=== PATIENT | female | born 1975 | race Caucasian/White ===

== ENCOUNTER 2024-02-01 17:03 | Inpatient (IN) | payer OTHER, SELFPAY ==
--- NOTE | ~2024-02-01 | XR_ITS ---
EXAMINATION: XR chest 2V CLINICAL INFORMATION: cough, SOB COMPARISON: None TECHNIQUE: 2 views of the chest FINDINGS: Clear lungs. No pneumothorax. No pleural effusion. Normal cardiomediastinal silhouette. XR/XR chest 2V IMPRESSION: Clear lungs. Electronically signed by: Shana Paul MD 02/01/2024 07:02 PM [facility]
[2024-02-01 17:33] VITALS: BP 111/78; PULSE 95; RESP 22; TEMP 37.2; O2SAT 87; BMI 24.1
--- NOTE | 2024-02-01 17:35 | ED.GENADULT ---
HPI - General Adult General Chief complaint: Upper Respiratory Symptoms Stated complaint: sob, cough Time Seen by Provider: 02/01/24 18:28 History of Present Illness ED Provider: Dez HERNDON narrative: The patient is a 48-year-old woman with a history of asthma. She is also a smoker. She is homeless. The patient says that she has been coughing for the last 4 days. She says that she thinks she has had fevers. She says that she is coughing up yellow sputum. She has been using her inhalers without relief. She says that last night she had to sleep outside in the rain and she got no sleep and became very chilled. Related Data Home Medications ?Medication ?Instructions ?Recorded ?Confirmed methadone 10 mg/5 mL oral solution 115 mg PO DAILY 02/01/24 02/01/24 Allergies Allergy/AdvReac Type Severity Reaction Status Date / Time No Known Allergies Allergy Unverified 02/01/24 17:35 Review of Systems Review of Systems: Yes all other systems are reviewed and are negative [facility] Past Medical History Medical History Opioid use disorder Tobacco use disorder COPD (chronic obstructive pulmonary disease) Asthma Social History Social History Advance Directives: No Advance Directives Information Provided: Yes Do you have a plan to hurt others: No Plan Patient : No Physical Exam ED Vital Signs: Vital Signs - 24 hr 02/01/24 17:33 02/01/24 17:58 02/01/24 19:09 Temperature 98.9 F Pulse Rate 95 119 H 119 H Respiratory Rate 22 H 24 H 18 Blood Pressure 111/78 Pulse Oximetry 87 L Oxygen Delivery Method Room Air Oxygen Flow Rate 02/01/24 19:30 Temperature 97.6 F Pulse Rate 113 H Respiratory Rate 18 Blood Pressure 136/79 Pulse Oximetry 93 Oxygen Delivery Method Nasal Cannula Oxygen Flow Rate 1 BMI result Body Mass Index 24.1 Const Other: The patient is a thin, somewhat chronically ill and disheveled looking 48-year-old. She is awake and alert and looks somewhat unwell. HENMT Other: Face is symmetrical. Mucous membranes moist. Poor dentition. Eyes General: appearance normal, both eyes and all related structures Neck Neck: Yes full ROM and Yes supple Resp Other: No obvious increased work of breathing. There are inspiratory and expiratory wheezes bilaterally. No roscoe crackles. Cardio Rate: tachycardic Rhythm: regular rhythm Heart sounds: S1 normal heart sound present and S2 normal heart sound present GI Other: Abdomen is soft and nontender Skin Other: Skin is pale and dry Neuro Other: The patient is awake and alert. Cranial nerves are grossly intact. She moves her extremities normally and seems grossly neurologically intact. Extrem Other: No peripheral edema. No calf swelling or tenderness. Course Course Course Narrative: RME performed by Verito Goss PA-C. Patient is a 48 year old assigned female at presenting to the emergency department with a cough, shortness of breath, and chest pain. Patient states she has been having shortness of breath and a cough. Detailed physical exam and review of systems are deferred to the primary education professor. EKG, labs, imaging, and swabs ordered. Patient placed back in the waiting room pending room availability and results. Medications Administered Generic Name Dose Route Start Last Admin Trade Name Freq PRN Reason Stop Dose Admin Albuterol/Ipratropium 3 ml 02/01/24 20:00 02/01/24 21:18 Albuterol/Iprat 2.5/0.5mg 3 Ml Ampul.Neb INHALE Not Given RQ4H WHILE AWAKE COURT Enoxaparin Sodium 40 mg 02/01/24 20:00 02/01/24 21:10 Enoxaparin Sodium 40 Mg/0.4 Ml Syringe SUBCUT [address] Administration Nicotine 14 mg 02/01/24 20:20 02/01/24 21:09 Nicotine 14 Mg Patch.Td24 TRANSDERMA [address] Administration Discontinued Medications Generic Name Dose Route Start Last Admin Trade Name Freq PRN Reason Stop Dose Admin Albuterol/Ipratropium 3 ml 02/01/24 18:57 02/01/24 19:09 Albuterol/Iprat 2.5/0.5mg 3 Ml Ampul.Neb INHALE 02/01/24 18:58 3 ml ONCE ONE Administration Ceftriaxone Sodium 1 gm 02/01/24 19:37 02/01/24 20:14 Ceftriaxone Sodium 1 Gm Vial IVPUSH 02/01/24 19:38 1 gm ONCE ONE Administration Albuterol Sulfate 5 mg/ 0 mg 02/01/24 17:50 02/01/24 17:56 Albuterol/Ipratropium 3 ml INHALE 02/01/24 17:51 1 each ONCE ONE Administration Magnesium Sulfate 2 gm in 50 mls @ 150 mls/hr 02/01/24 18:55 02/01/24 19:37 Magnesium Sulfate/H2o IV 02/01/24 19:14 Infused ONCE ONE Infusion Azithromycin 500 mg/ Sodium 250 mls @ 125 mls/hr 02/01/24 19:39 02/01/24 20:26 Chloride IV 02/01/24 21:38 125 mls/hr ONCE ONE Administration Methadone HCl 115 mg 02/01/24 19:46 02/01/24 20:14 Methadone Hcl 20 Mg/2 Ml Oral.Conc PO 02/01/24 19:47 115 mg ONCE ONE Administration Methylprednisolone Sodium Succinate 80 mg 02/01/24 18:52 02/01/24 19:18 Methylprednisolone Sod Succ 125 Mg/2 Ml Vial IVPUSH 02/01/24 18:53 80 mg ONCE ONE Administration Medical Decision Making Medical Decision Making [facility] Narrative: The patient woman with a also a smoker. She is also homeless and she has a history of substance use disorder on methadone. She says that she normally lives on the streets in the [facility]. She does not have a primary care doctor. She says she has been sick with respiratory symptoms primarily a cough and shortness of breath for the last 4 days. On exam she has significant bilateral wheezing. She has a clear chest x-ray. She has an elevated white count. Her oxygen saturation on room air on arrival was 87% and she was given supplemental oxygen. Her magnesium was mildly low. She will be treated with bronchodilator treatments, IV magnesium, IV steroids, and IV antibiotics. She did not improved significantly after updrafts and will be admitted for further care. Lab Data 02/01/24 17:46 02/01/24 17:46 Labs: Lab Results 02/01/24 Range/Units 17:46 WBC 15.1 H (4.8-10.8) X10*3/uL RBC 4.21 (4.20-5.50) X10*6/uL Hgb 12.7 (12.0-16.0) g/dl Hct 36.6 L (37.0-47.0) % MCV 86.9 (80.0-98.0) fL MCH 30.2 (27.0-33.0) pg MCHC 34.7 (31.0-35.0) g/dl RDW 13.7 (11.0-16.0) % Plt Count 239 (160-400) X10*3/uL MPV 9.2 L (9.4-12.3) fL Immature Gran % (Auto) 0.5 H (0.0-0.4) % Neut % (Auto) 83.1 H (45-73) % Lymph % (Auto) 10.8 L (20-40) % Archer % (Auto) 4.8 (2-11) % Eos % (Auto) 0.5 (0-4) % Baso % (Auto) 0.3 (0-2) % Lymph # (Auto) 1.6 (1.2-4.9) X10*3/uL Archer # (Auto) 0.7 (0.1-1.2) X10*3/uL Eos # (Auto) 0.1 (0.0-0.4) X10*3/uL Baso # (Auto) 0.1 (0.0-0.2) X10*3/uL Abs Immat Gran (auto) 0.07 H (0.00-0.03) X10*3/uL Absolute Neuts (auto) 12.6 H (2.0-8.3) x10*3/uL Absolute Nucleated RBC 0.000 (0.0-0.012) X10*3/uL Nucleated RBC % (auto) 0.0 (0.0-0.2) /100WBC Sodium 136 (135-145) mmol/L Potassium 3.5 (3.3-5.1) mmol/L Chloride 103 (96-108) mmol/L Carbon Dioxide 23 (22-29) mmol/L Anion Gap 14 (12-20) BUN 13 (9-16) mg/dL Creatinine 0.90 (0.5-1.4) mg/dL Estim Creat Clear Calc 70.2 Estimated GFR > 60 Random Glucose 142 H (60-115) mg/dL Calcium 9.3 (8.4-10.2) mg/dL Magnesium 1.4 L* (1.6-2.6) mg/dL Total Bilirubin 0.4 (0.0-1.0) mg/dL AST 30 (5-31) U/L ALT 26 (0-31) U/L Alkaline Phosphatase 66 (39-117) U/L Troponin I High Sens < 2.7 (<3.5-17.0) ng/L C-Reactive Protein 4.87 H (< or = 0.50) mg/dL Total Protein 6.6 (6.5-8.0) g/dL Albumin 3.9 (3.5-5.0) g/dL Beta HCG, Quant < 2 mIU/mL Influenza Type A (PCR) NEGATIVE (Negative) Influenza Type B (PCR) NEGATIVE (Negative) RSV RNA Qual (PCR) NEGATIVE (Negative) SARS-CoV-2 RNA (RT-PCR) NEGATIVE (Negative) Independent Interpretation I performed an independent interpretation of an: EKG Interpretation: EKG at 17:34 shows sinus tachycardia at 121 beats per minute. No definite acute ischemic changes. QTC is 434. Critical Care Time Critical Care Time Critical Care Time: Yes Total Critical Care Time: 35 Attestation: The patient was critically ill with a high probability of imminent or life-threatening deterioration. ?I spent greater than 30 minutes of discontinuous time evaluating the patient, delivering critical care at the bedside, discussing evaluating data with consultants. ?Critical care time does not include time spent performing separately billable procedures or teaching. ?Time spent performing critical care with 35 minutes. Discharge Plan Discharge Clinical Impression: Acute bronchitis with asthma with acute exacerbation Patient Disposition: Admitted As Inpatient
--- NOTE | 2024-02-01 17:36 | ECG_ITS ---
Test Reason : cough Blood Pressure : / mmHG Vent. Rate : 121 BPM Atrial Rate : 121 BPM P-R Int : 134 ms QRS Dur : 076 ms QT Int : 306 ms P-R-T Axes : 064 039 046 degrees QTc Int : 434 ms Sinus tachycardia Possible Left atrial enlargement Borderline ECG No previous ECGs available Referred By: Verito Goss Electronically Signed By:Conor Rocha
--- NOTE | 2024-02-01 17:39 | PC.NURSE ---
PLaced on 2L NC in triage
[2024-02-01] MEDS: Albuterol Sulfate 5 MG, Albuterol/Iprat 2.5/0.5MG 3 ML 3 ML INHALE (17:56)
[2024-02-01 17:58] VITALS: PULSE 119; RESP 24; O2SAT 100
[2024-02-01 17:58] LABS: MANUAL DIFF FLAG NO
[2024-02-01 18:02] LABS: Basophils Absolute Auto 0.1 X10*3/uL (0.0-0.2); Basophils Percent Auto 0.3 % (0-2); Eosinophils Absolute Auto 0.1 X10*3/uL (0.0-0.4); Eosinophils Percent Auto 0.5 % (0-4); Hematocrit 36.6 % (37.0-47.0); Hemoglobin 12.7 g/dl (12.0-16.0); Imm Gran Abs Auto 0.07 X10*3/uL (0.00-0.03); Imm Gran Pct Auto 0.5 % (0.0-0.4); Lymphocytes Absolute Auto 1.6 X10*3/uL (1.2-4.9); Lymphocytes Percent Auto 10.8 % (20-40); Mean Corpuscular HGB Conc 34.7 g/dl (31.0-35.0); Mean Corpuscular Hemoglobin 30.2 pg (27.0-33.0); Mean Corpuscular Volume 86.9 fL (80.0-98.0); Mean Platelet Volume 9.2 fL (9.4-12.3); Monocytes Absolute Auto 0.7 X10*3/uL (0.1-1.2); Monocytes Percent Auto 4.8 % (2-11); Neutrophils Absolute Auto 12.6 x10*3/uL (2.0-8.3); Neutrophils Percent Auto 83.1 % (45-73); Platelet Count 239 X10*3/uL (160-400); Red Blood Count 4.21 X10*6/uL (4.20-5.50); Red Cell Distribution Width 13.7 % (11.0-16.0); White Blood Count 15.1 X10*3/uL (4.8-10.8)
[2024-02-01 18:32] LABS: Alanine Aminotransferase 26 U/L (0-31); Albumin Level 3.9 g/dL (3.5-5.0); Alkaline Phosphatase 66 U/L (39-117); Anion Gap 14 (12-20); Aspartate Amino Transferase 30 U/L (5-31); Bilirubin Total 0.4 mg/dL (0.0-1.0); Blood Urea Nitrogen 13 mg/dL (9-16); Calcium 9.3 mg/dL (8.4-10.2); Carbon Dioxide 23 mmol/L (22-29); Chloride 103 mmol/L (96-108); Creatinine Clr Calc Pharmacy 70.2; Estimated Glomerular Filt Rate > 60; Glucose Random 142 mg/dL (60-115); Potassium 3.5 mmol/L (3.3-5.1); Sodium 136 mmol/L (135-145); Total Protein 6.6 g/dL (6.5-8.0); Troponin-I High Sensitivity < 2.7 ng/L (<3.5-17.0)
[2024-02-01 18:43] LABS: Influenza A PCR NEGATIVE (Negative); Influenza B PCR NEGATIVE (Negative); Resp Syncy Virus RNA Qual PCR NEGATIVE (Negative); SARS COV2 PCR INHOUSE NEGATIVE (Negative)
[2024-02-01 19:09] VITALS: PULSE 119; RESP 18; O2SAT 96
[2024-02-01] MEDS: Albuterol/Iprat 2.5/0.5MG 3 ML AMPUL.NEB INHALE (19:09)
[2024-02-01 19:12] LABS: Magnesium 1.4 mg/dL (1.6-2.6)
[2024-02-01 19:14] LABS: C Reactive Protein 4.87 mg/dL (< or = 0.50)
[2024-02-01] MEDS: Magnesium Sulfate/H2O 2 GM/50 ML PIGGYBACK IV (19:17)
[2024-02-01] MEDS: methylPREDNISolone Sod Succ 125 MG/2 ML VIAL 80 MG IVPUSH (19:18)
[2024-02-01 19:22] LABS: HCG Quantitative < 2 mIU/mL
[2024-02-01 19:30] VITALS: BP 136/79; PULSE 113; RESP 18; TEMP 36.4; O2SAT 93
--- NOTE | 2024-02-01 19:45 | PC.NURSE ---
methadone dose verified with [facility],. last dose 115mg 01/31/24
--- NOTE | 2024-02-01 19:47 | P.HPHOSP_ITS ---
History of Present Illness Date of Service: 02/01/24 Chief Complaint: Dyspnea This is a 48-year-old female with pertinent history of asthma/COPD overlap syndrome, tobacco use disorder, opioid use disorder on methadone who presents to the emergency department for evaluation of dyspnea. Patient states her symptoms started 4 days prior to presentation. She has been having dyspnea which is worse with exertion. Also has been having productive cough with yellowish sputum production. Admits associated wheezing which is limiting her ambulation. Admits feeling feverish but no documented temperature. No chills, nausea, vomiting, chest pain, palpitations, abdominal pain, changes in urinary or bowel habits. In the emergency department, patient was found to be hypoxic and placed on supplemental oxygen. Given DuoNebs, IV azithromycin and steroids Review of Systems 2 Constitutional: Constitutional: Reports fatigue and Reports malaise Cardiovascular: Cardiovascular: Reports dyspnea on exertion Respiratory: Respiratory: Reports cough, Reports dyspnea on exertion and Reports wheezing Gastrointestinal: Gastrointestinal: Reports no additional gastrointestinal complaints Genitourinary: Genitourinary: Reports no additional female genitourinary complaints Endocrine: Endocrine: Reports fatigue Allergic/Immunologic: Allergic/Immunologic: Reports wheezing [facility] Medical History Opioid use disorder Tobacco use disorder COPD (chronic obstructive pulmonary disease) Asthma Pertinent family history: No family history of early CAD Meds Allergies Allergy/AdvReac Type Severity Reaction Status Date / Time No Known Allergies Allergy Unverified 02/01/24 17:35 Active Medications: Current Medications Azithromycin 500 mg/ Sodium (Chloride) 250 mls @ 125 mls/hr IV ONCE ONE Stop: 02/01/24 21:38 Physical Exam 2 Vital Signs and Narrative: Vital Signs: Last Vital Signs Temp 97.6 F 02/01/24 19:30 Pulse 113 H 02/01/24 19:30 Resp 18 02/01/24 19:30 BP 136/79 02/01/24 19:30 Pulse Ox 93 02/01/24 19:30 O2 Del Method Nasal Cannula 02/01/24 19:30 O2 Flow Rate 1 02/01/24 19:30 BMI result Body Mass Index 24.1 Middle-aged female lying in bed in mild distress on supplemental oxygen Neck supple, no JVD Regular rate and rhythm, S1-S2 heard Bilateral wheezing present Abdomen soft nontender, no guarding, no rigidity Patient is awake, alert and oriented to self, place, time and person ; no focal motor deficit Psych: Normal mood No pedal edema Results Labs 02/01/24 17:46 02/01/24 17:46 Labs: Laboratory Results - last 24 hr 02/01/24 17:46 MCV 86.9 MCH 30.2 MCHC 34.7 RDW 13.7 Plt Count 239 MPV 9.2 L Immature Gran % (Auto) 0.5 H Neut % (Auto) 83.1 H Lymph % (Auto) 10.8 L Nelson % (Auto) 4.8 Eos % (Auto) 0.5 Baso % (Auto) 0.3 Lymph # (Auto) 1.6 Nelson # (Auto) 0.7 Eos # (Auto) 0.1 Baso # (Auto) 0.1 Abs Immat Gran (auto) 0.07 H Absolute Neuts (auto) 12.6 H Absolute Nucleated RBC 0.000 Nucleated RBC % (auto) 0.0 Anion Gap 14 Estim Creat Clear Calc 70.2 Estimated GFR > 60 Random Glucose 142 H Calcium 9.3 Magnesium 1.4 L* Total Bilirubin 0.4 AST 30 ALT 26 Alkaline Phosphatase 66 Troponin I High Sens < 2.7 C-Reactive Protein 4.87 H Total Protein 6.6 Albumin 3.9 Beta HCG, Quant < 2 Influenza Type A (PCR) NEGATIVE Influenza Type B (PCR) NEGATIVE RSV RNA Qual (PCR) NEGATIVE SARS-CoV-2 RNA (RT-PCR) NEGATIVE Imaging Radiologist's Impressions: Impressions Chest X-Ray 02/01/24 17:37 IMPRESSION: Clear lungs. Electronically signed by: Shana Paul MD 02/01/2024 07:02 PM [facility] Assessment and Plan (1) Acute bronchitis with asthma with acute exacerbation: Status: Acute (2) COPD (chronic obstructive pulmonary disease): Status: Acute Plan This is a 48-year-old female with pertinent history of asthma/COPD overlap syndrome, tobacco use disorder, opioid use disorder on methadone who presents to the emergency department for evaluation of dyspnea. #. Acute hypoxemic respiratory failure due to acute exacerbation of asthma/COPD overlap syndrome: Will admit patient with supplemental oxygen. Initiating she due and p.r.nWoody Terrell. Not on home inhaler. Continue supplemental oxygen and wean as tolerated, maintain oxygen saturation greater than 88%. Initiating azithromycin for pleiotropic effect. Also initiating systemic steroids #. Reactive leukocytosis, tachycardia and tachypnea in the setting of above. No sepsis #. Hypomagnesemia: Repleted #. Tobacco use disorder: Counseled regarding cessation. Nicotine patch while in the hospital #. Homelessness: Consulted case management #. Opioid use disorder: On methadone Med rec pending DVT prophylaxis: Lovenox Full code Admit as inpatient and will require two night minimum hospital stay for supplemental oxygen, monitoring of respiratory status, systemic steroids (as above), which is not possible in a lesser acute setting. Quality Stroke Does the patient have a stroke diagnosis?: No VTE Prior VTE?: No VTE Risk Level:: Medical - moderate - high VTE Device Contraindication: Treatment Not Indicated VTE Drug Contraindication: N/A - Med Ordered
[2024-02-01 19:52] VITALS: O2SAT 94
--- NOTE | 2024-02-01 20:06 | HE.PHANOTE ---
METHADONE CONFIRMATION FORM TOTAL DOSE 115MG GIVEN 01/30 BY Marleny [facility]AH[facility]
[2024-02-01] MEDS: cefTRIAXone sodium 1 GM VIAL IVPUSH (20:14)
[2024-02-01] MEDS: methADONE HCl 20 MG/2 ML ORAL.CONC 115 MG PO (20:14)
[2024-02-01] MEDS: Azithromycin 500 MG in 0.9 % Sodium Chloride 250 ML 125 MG IV (20:26)
--- NOTE | 2024-02-01 20:42 | PHA.MEDREC ---
Addendum entered by Anny Reynolds RPh 02/01/24 20:59: med rec reviewed by this [facility] Original Note: Pharmacy Consult ? Medication Reconciliation Pharmacy has completed the medication reconciliation. Patient confirmed she is only taking Methadone 115mg daily and nothing else and states she doesn't remember the last time she took it [facility] Pharmacy confirmed METHADONE CONFIRMATION FORM TOTAL DOSE 115MG GIVEN 01/30 BY Marleny [facility] . Added to med rec and confirmed based on patient and pharmacy information.
[2024-02-01] MEDS: Nicotine 14 MG PATCH.TD24 TRANSDERMA (21:09)
[2024-02-01] MEDS: Enoxaparin Sodium 40 MG/0.4 ML SYRINGE SUBCUT (21:10)
[2024-02-01 22:02] VITALS: BP 112/61; PULSE 84; RESP 16; TEMP 36.8; O2SAT 93
--- NOTE | 2024-02-01 22:32 | PC.NURSE ---
pt azithromycin still infusing pt reminded to keep arm straight
[2024-02-01] MEDS: 0.9 % Sodium Chloride Flush 3 ML SYRINGE IVFLUSH (23:36)
--- NOTE | 2024-02-02 00:09 | PC.NURSE ---
Azithromycin IV disconnected. Infusion completed. Pt was repeatedly bending her arm, causing downstream occlusion of the IV line. IV is patent/functional. Encouraged to keep arm straight, which delayed complete infusion within the ordered amount of time. Pt denies any other needs at this time. Pt intermittently resting/sleeping. Respirations even/unlabored. Care ongoing by this RN.
[2024-02-02 04:05] VITALS: BP 96/63; PULSE 78; RESP 24; TEMP 36.4; O2SAT 99
[2024-02-02 06:04] LABS: MANUAL DIFF FLAG NO
[2024-02-02 06:09] LABS: Basophils Percent Auto 0.1 % (0-2); Hemoglobin 11.2 g/dl (12.0-16.0); Imm Gran Abs Auto 0.05 X10*3/uL (0.00-0.03); Imm Gran Pct Auto 0.5 % (0.0-0.4); Lymphocytes Absolute Auto 0.8 X10*3/uL (1.2-4.9); Lymphocytes Percent Auto 7.8 % (20-40); Mean Corpuscular HGB Conc 32.9 g/dl (31.0-35.0); Mean Corpuscular Hemoglobin 29.6 pg (27.0-33.0); Mean Corpuscular Volume 89.9 fL (80.0-98.0); Mean Platelet Volume 9.9 fL (9.4-12.3); Monocytes Absolute Auto 0.3 X10*3/uL (0.1-1.2); Monocytes Percent Auto 3.2 % (2-11); Neutrophils Absolute Auto 8.5 x10*3/uL (2.0-8.3); Neutrophils Percent Auto 88.4 % (45-73); Platelet Count 231 X10*3/uL (160-400); Red Blood Count 3.78 X10*6/uL (4.20-5.50); Red Cell Distribution Width 13.9 % (11.0-16.0); White Blood Count 9.6 X10*3/uL (4.8-10.8)
[2024-02-02 06:27] LABS: Anion Gap 14 (12-20); Blood Urea Nitrogen 23 mg/dL (9-16); Carbon Dioxide 23 mmol/L (22-29); Chloride 105 mmol/L (96-108); Creatinine Clr Calc Pharmacy 79.1; Estimated Glomerular Filt Rate > 60; Glucose Random 160 mg/dL (60-115); Potassium 4.1 mmol/L (3.3-5.1); Sodium 138 mmol/L (135-145)
[2024-02-02] MEDS: Albuterol/Iprat 2.5/0.5MG 3 ML AMPUL.NEB INHALE ×4 (07:50→23:07)
[2024-02-02 07:52] VITALS: PULSE 62; RESP 22; O2SAT 97
[2024-02-02] MEDS: Nicotine 14 MG PATCH.TD24 TRANSDERMA (08:19)
[2024-02-02] MEDS: predniSONE 20 MG TABLET 40 MG PO (08:19)
[2024-02-02] MEDS: 0.9 % Sodium Chloride Flush 3 ML SYRINGE IVFLUSH ×3 (08:19→23:09)
[2024-02-02 11:36] VITALS: BP 128/90; PULSE 56; RESP 18; TEMP 36.3; O2SAT 97
[2024-02-02 11:43] VITALS: PULSE 82; RESP 18; O2SAT 98
[2024-02-02 12:04] LABS: Magnesium 2.2 mg/dL (1.6-2.6)
[2024-02-02] MEDS: methADONE HCl 20 MG/2 ML ORAL.CONC 115 MG PO (13:27)
[2024-02-02] MEDS: Acetaminophen 325 MG TABLET 650 MG PO (13:42)
[2024-02-02] MEDS: Loratadine 10 MG TABLET PO (14:49)
[2024-02-02 16:00] LABS: Adenovirus PCR Not Detected (Not Detect.); Bordetella parapertussis PCR Not Detected (Not Detect.); Bordetella pertussis PCR Not Detected (Not Detect.); Chlamydia pneumoniae PCR Not Detected (Not Detect.); Coronavirus 229E PCR Not Detected (Not Detect.); Coronavirus HKU1 PCR Not Detected (Not Detect.); Coronavirus NL63 PCR Not Detected (Not Detect.); Coronavirus OC43 PCR Not Detected (Not Detect.); Human metapneumovirus PCR Not Detected (Not Detect.); Influenza A PCR Not Detected (Not Detect.); Influenza B PCR Not Detected (Not Detect.); Mycoplasma pneumoniae PCR Not Detected (Not Detect.); Parainfluenza 1 PCR Not Detected (Not Detect.); Parainfluenza 2 PCR Not Detected (Not Detect.); Parainfluenza 3 PCR Not Detected (Not Detect.); Parainfluenza 4 PCR Not Detected (Not Detect.); RSV PCR Not Detected (Not Detect.); Rhino/Enterovirus PCR Detected (Not Detect.)
[2024-02-02 16:06] VITALS: PULSE 87; RESP 18; O2SAT 96
[2024-02-02 16:32] LABS: SARS-CoV-2 PCR Not Detected (Not Detect.)
--- NOTE | 2024-02-02 17:56 | P.PNIM_ITS ---
Subjective Subjective Date of Service: 02/03/24 Interval History: Acute hypoxemic respiratory failure due to acute exacerbation of asthma(moderate persistent)/COPD overlap syndrome Review of Systems Shortness of breaths seems similar Aggressive cough Physical Exam 2 Vital Signs: Vital Signs: Last Vital Signs Temp 97.3 F 02/02/24 11:36 Pulse 87 02/02/24 16:06 Resp 18 02/02/24 16:06 BP 128/90 H 02/02/24 11:36 Pulse Ox 97 02/02/24 11:36 O2 Del Method Nasal Cannula 02/02/24 11:36 O2 Flow Rate 1 02/02/24 11:36 Oxygen Flow Rate 2 02/01/24 19:52 BMI result Body Mass Index 24.1 Appearance: Alert.? Oriented X3.? cvs: rrr, [id number]. res: air enrty diminshed , has b/l wheezing abd: no rebound or guarding ,nt, bs present. ext pulses present , no cyanosis . neuro: axo3 , nonfocal. Objective Data Active Medications Acetaminophen (Acetaminophen 325 Mg Tablet) 650 mg PO Q6H PRN PRN Reason: Pain, Mild (Pain Scale 1-3), fever or headache Last Admin: 02/02/24 13:42 Dose: 650 mg Documented By: JEN Albuterol/Ipratropium (Albuterol/Iprat 2.5/0.5mg 3 Ml Ampul.Neb) 3 ml INHALE RQ4H WHILE AWAKE [facility] Last Admin: 02/02/24 16:06 Dose: 3 ml Documented By: JUANCARLOS Albuterol/Ipratropium (Albuterol/Iprat 2.5/0.5mg 3 Ml Ampul.Neb) 3 ml INHALE Q4H PRN PRN Reason: Wheezing Calcium Carbonate (Calcium Carbonate 750 Mg Tab.Chew) 750 mg PO Q4H PRN PRN Reason: Heartburn Enoxaparin Sodium (Enoxaparin Sodium 40 Mg/0.4 Ml Syringe) [address] [facility] Last Admin: 02/01/24 21:10 Dose: 40 mg Documented By: ABELINO Guaifenesin/Codeine Phosphate (Guaifen/Codeine Sf 200/20/10ml 10 Ml Liquid) 10 ml PO Q4H PRN PRN Reason: Cough Azithromycin 500 mg/ Sodium (Chloride) 250 mls @ 125 mls/hr IV Q24H [facility] Loratadine (Loratadine 10 Mg Tablet) [address] [facility] Last Admin: 02/02/24 14:49 Dose: 10 mg Documented By: JEN Magnesium Hydroxide (Milk Of Magnesia 30 Ml Oral.Susp) 30 ml PO DAILY PRN PRN Reason: Constipation Melatonin (Melatonin 3 Mg Tablet) 6 mg PO BEDTIME PRN PRN Reason: Insomnia Methadone HCl (Methadone Hcl 20 Mg/2 Ml Oral.Conc) [address] [facility] Last Admin: 02/02/24 13:27 Dose: 115 mg Documented By: JEN Co-signed By: FAUSTINODENJulee Nicotine (Nicotine 14 Mg Patch.Td24) [address] [facility] Last Admin: 02/02/24 08:19 Dose: 14 mg Documented By: JEN Ondansetron HCl (Ondansetron Hcl 4 Mg/2 Ml Vial) 4 mg IVPUSH Q8H PRN PRN Reason: Nausea and Vomiting Prednisone (Prednisone 20 Mg Tablet) [address] [facility] Last Admin: 02/02/24 08:19 Dose: 40 mg Documented By: JEN Sodium Chloride (0.9 % Sodium Chloride Flush 3 Ml Syringe) [address] [facility] Last Admin: 02/02/24 17:14 Dose: 3 ml Documented By: JEN Labs 02/02/24 04:57 02/02/24 04:57 Labs: Laboratory Results - last 24 hr 02/01/24 02/01/24 02/02/24 17:46 20:30 04:57 MCV 86.9 89.9 MCH 30.2 29.6 MCHC 34.7 32.9 RDW 13.7 13.9 Plt Count 239 231 MPV 9.2 L 9.9 Immature Gran % (Auto) 0.5 H 0.5 H Neut % (Auto) 83.1 H 88.4 H Lymph % (Auto) 10.[address] % (Auto) 4.8 3.2 Eos % (Auto) 0.5 0.0 Baso % (Auto) 0.3 0.1 Lymph # (Auto) 1.[address] # (Auto) 0.7 0.3 Eos # (Auto) 0.1 0.0 Baso # (Auto) 0.1 0.0 Abs Immat Gran (auto) 0.07 H 0.05 H Absolute Neuts (auto) 12.6 H 8.5 H Absolute Nucleated RBC 0.000 0.000 Nucleated RBC % (auto) 0.0 0.0 Anion Gap 14 14 Estim Creat Clear Calc 70.2 79.1 Estimated GFR > 60 > 60 Random Glucose 142 H 160 H Lactic Acid 2.0 Calcium 9.3 9.0 Magnesium 1.4 L* 2.2 Total Bilirubin 0.4 AST 30 ALT 26 Alkaline Phosphatase 66 Troponin I High Sens < 2.7 C-Reactive Protein 4.87 H Total Protein 6.6 Albumin 3.9 Beta HCG, Quant < 2 Respiratory Panel Wall Adenovirus (Rapid PCR) B.pert (TEM-PCR) B.parapertussis DNA PCR C. pneumoniae DNA (PCR) Coronavirus OC43 (PCR) Coronavirus HKU1 (PCR) Coronavirus 229E (PCR) Coronavirus NL63 (PCR) Human Metapneumovir PCR Influenza A (RT-PCR) Influenza Type A (PCR) NEGATIVE Influenza B (RT-PCR) Influenza Type B (PCR) NEGATIVE M. pneumoniae (PCR) Parainfluenza 1 (PCR) Parainfluenza 2 (PCR) Parainfluenza 3 (PCR) Parainfluenza 4 (PCR) RSV (PCR) RSV RNA Qual (PCR) NEGATIVE Entero/Rhino (PCR) SARS-CoV-2 RNA (RT-PCR) NEGATIVE 02/02/24 14:32 MCV MCH MCHC RDW Plt Count MPV Immature Gran % (Auto) Neut % (Auto) Lymph % (Auto) Lane % (Auto) Eos % (Auto) Baso % (Auto) Lymph # (Auto) Lane # (Auto) Eos # (Auto) Baso # (Auto) Abs Immat Gran (auto) Absolute Neuts (auto) Absolute Nucleated RBC Nucleated RBC % (auto) Anion Gap Estim Creat Clear Calc Estimated GFR Random Glucose Lactic Acid Calcium Magnesium Total Bilirubin AST ALT Alkaline Phosphatase Troponin I High Sens C-Reactive Protein Total Protein Albumin Beta HCG, Quant Respiratory Panel Wall See Note Adenovirus (Rapid PCR) Not Detected B.pert (TEM-PCR) Not Detected B.parapertussis DNA PCR Not Detected C. pneumoniae DNA (PCR) Not Detected Coronavirus OC43 (PCR) Not Detected Coronavirus HKU1 (PCR) Not Detected Coronavirus 229E (PCR) Not Detected Coronavirus NL63 (PCR) Not Detected Human Metapneumovir PCR Not Detected Influenza A (RT-PCR) Not Detected Influenza Type A (PCR) Influenza B (RT-PCR) Not Detected Influenza Type B (PCR) M. pneumoniae (PCR) Not Detected Parainfluenza 1 (PCR) Not Detected Parainfluenza 2 (PCR) Not Detected Parainfluenza 3 (PCR) Not Detected Parainfluenza 4 (PCR) Not Detected RSV (PCR) Not Detected RSV RNA Qual (PCR) Entero/Rhino (PCR) Detected A SARS-CoV-2 RNA (RT-PCR) Not Detected Assessment and Plan (1) COPD (chronic obstructive pulmonary disease): Status: Acute (2) Asthma: Status: Acute Assessment and Plan: 48-year-old female with pertinent history of asthma/COPD overlap syndrome, tobacco use disorder, opioid use disorder on methadone who presents to the emergency department for evaluation of dyspnea. Acute hypoxemic respiratory failure due to acute exacerbation of asthma/COPD overlap syndrome: Will admit patient with supplemental oxygen. Initiating she due and p.r.n. DuoNebs. Not on home inhaler. Continue supplemental oxygen and wean as tolerated, maintain oxygen saturation greater than 88%. Initiating azithromycin for pleiotropic effect. Also initiating systemic steroids Reactive leukocytosis, tachycardia and tachypnea in the setting of above. No sepsis Hypomagnesemia: Repleted Tobacco use disorder: Counseled regarding cessation. Nicotine patch while in the hospital Homelessness: Consulted case management Opioid use disorder: On methadone Med rec pending DVT prophylaxis: Lovenox Full code ongoing need for stay-hospital stay for supplemental oxygen, monitoring of respiratory status, systemic steroids (as above), which is not possible in a lesser acute setting. Quality Stroke Does the patient have a stroke diagnosis?: No VTE Prior VTE?: No VTE Risk Level:: Medical - moderate - high VTE Device Contraindication: Treatment Not Indicated VTE Drug Contraindication: N/A - Med Ordered
--- NOTE | 2024-02-02 19:14 | PC.NURSE ---
received report from previous nurse, assume care of pt at this time
[2024-02-02 20:00] VITALS: BP 131/76; PULSE 65; RESP 14; TEMP 36.2; O2SAT 92
[2024-02-02] MEDS: guaiFEN/Codeine SF 200/20/10ML 10 ML LIQUID PO (20:36)
[2024-02-02] MEDS: Enoxaparin Sodium 40 MG/0.4 ML SYRINGE SUBCUT (20:36)
[2024-02-02] MEDS: Azithromycin 500 MG in 0.9 % Sodium Chloride 250 ML 125 MG IV (20:41)
[2024-02-03] VITALS (7 sets, daily range): BP systolic 107–126; BP diastolic 64–84; PULSE 81–106; RESP 12–20; TEMP 36.1–36.7; O2SAT 95–98
[2024-02-03] MEDS: Albuterol/Iprat 2.5/0.5MG 3 ML AMPUL.NEB INHALE ×5 (03:27→20:10)
--- NOTE | 2024-02-03 03:28 | PC.NURSE ---
pt awake and sitting up in the bed, states she feels like she can't breath, pt request breathing treatment. treatment given,
[2024-02-03] MEDS: guaiFEN/Codeine SF 200/20/10ML 10 ML LIQUID PO ×3 (03:59→17:43)
--- NOTE | 2024-02-03 04:01 | PC.NURSE ---
pt coughing, requests cough medicine, medicine given as requested
--- NOTE | 2024-02-03 07:09 | PC.NURSE ---
report given to Robert ARRIAGA
[2024-02-03] MEDS: methADONE HCl 20 MG/2 ML ORAL.CONC 115 MG PO (08:49)
[2024-02-03] MEDS: Nicotine 14 MG PATCH.TD24 TRANSDERMA (08:51)
[2024-02-03] MEDS: predniSONE 20 MG TABLET 40 MG PO (08:52)
[2024-02-03] MEDS: Loratadine 10 MG TABLET PO (08:53)
--- NOTE | 2024-02-03 09:34 | PC.NURSE ---
pt has congested cough. precautions maintained.
--- NOTE | 2024-02-03 13:24 | MHC.CM.PN ---
[place] SAYS SHE KNOWS ABOUT THE [facility] GOES TO [facility] FOR HER METHADONE DC PLAN RETIURN TO THE STREETS
--- NOTE | 2024-02-03 16:22 | HO.PM.IMPN ---
Subjective Subjective Date of Service: 02/04/24 Interval History: Acute hypoxemic respiratory failure due to acute exacerbation of asthma(moderate persistent)/COPD overlap syndrome Review of Systems Shortness of breaths seems similar Aggressive cough Physical Exam Vital Signs: Vital Signs: Last Vital Signs Temp 98.0 F 02/03/24 13:21 Pulse 86 02/03/24 15:36 Resp 20 02/03/24 15:36 BP 124/84 02/03/24 13:21 Pulse Ox 95 02/03/24 13:21 O2 Del Method Room Air 02/03/24 13:21 O2 Flow Rate 1 02/03/24 06:00 Oxygen Flow Rate 2 02/01/24 19:52 BMI result Body Mass Index 24.1 Appearance: Alert.? Oriented X3.? cvs: rrr, [id number]. res: air enrty diminshed , has b/l wheezing abd: no rebound or guarding ,nt, bs present. ext pulses present , no cyanosis . neuro: axo3 , nonfocal. Objective Data Active Medications Acetaminophen (Acetaminophen 325 Mg Tablet) 650 mg PO Q6H PRN PRN Reason: Pain, Mild (Pain Scale 1-3), fever or headache Last Admin: 02/02/24 13:42 Dose: 650 mg Documented By: JEN Albuterol/Ipratropium (Albuterol/Iprat 2.5/0.5mg 3 Ml Ampul.Neb) 3 ml INHALE RQ4H WHILE AWAKE [facility] Last Admin: 02/03/24 15:36 Dose: 3 ml Documented By: TED Albuterol/Ipratropium (Albuterol/Iprat 2.5/0.5mg 3 Ml Ampul.Neb) 3 ml INHALE Q4H PRN PRN Reason: Wheezing Last Admin: 02/03/24 03:27 Dose: 3 ml Documented By: DEWEY Calcium Carbonate (Calcium Carbonate 750 Mg Tab.Chew) 750 mg PO Q4H PRN PRN Reason: Heartburn Enoxaparin Sodium (Enoxaparin Sodium 40 Mg/0.4 Ml Syringe) 40 mg SUBCUT Q24H [facility] Last Admin: 02/02/24 20:36 Dose: 40 mg Documented By: DEWEY Guaifenesin/Codeine Phosphate (Guaifen/Codeine Sf 200/20/10ml 10 Ml Liquid) 10 ml PO Q4H PRN PRN Reason: Cough Last Admin: 02/03/24 08:51 Dose: 10 ml Documented By: CRISS Azithromycin 500 mg/ Sodium (Chloride) 250 mls @ 125 mls/hr IV Q24H [facility] Last Infusion: 02/02/24 22:54 Dose: Infused Documented By: DEWEY Loratadine (Loratadine 10 Mg Tablet) 10 mg PO DAILY [facility] Last Admin: 02/03/24 08:53 Dose: 10 mg Documented By: CRISS Magnesium Hydroxide (Milk Of Magnesia 30 Ml Oral.Susp) 30 ml PO DAILY PRN PRN Reason: Constipation Melatonin (Melatonin 3 Mg Tablet) 6 mg PO BEDTIME PRN PRN Reason: Insomnia Methadone HCl (Methadone Hcl 20 Mg/2 Ml Oral.Conc) 115 mg PO DAILY [facility] Last Admin: 02/03/24 08:49 Dose: 115 mg Documented By: CRISS Co-signed By: JESUS Nicotine (Nicotine 14 Mg Patch.Td24) 14 mg TRANSDERMA DAILY [facility] Last Admin: 02/03/24 08:51 Dose: 14 mg Documented By: CRISS Ondansetron HCl (Ondansetron Hcl 4 Mg/2 Ml Vial) 4 mg IVPUSH Q8H PRN PRN Reason: Nausea and Vomiting Prednisone (Prednisone 20 Mg Tablet) 40 mg PO DAILY [facility] Last Admin: 02/03/24 08:52 Dose: 40 mg Documented By: CRISS Sodium Chloride (0.9 % Sodium Chloride Flush 3 Ml Syringe) 3 ml IVFLUSH QSHIFT [facility] Last Admin: 02/03/24 14:13 Dose: Not Given Documented By: CRISS Non-Admin Reason: Previously Administered Labs 02/02/24 04:57 02/02/24 04:57 Labs: Laboratory Results - last 24 hr 02/02/24 14:32 Respiratory Panel Wall See Note Adenovirus (Rapid PCR) Not Detected B.pert (TEM-PCR) Not Detected B.parapertussis DNA PCR Not Detected C. pneumoniae DNA (PCR) Not Detected Coronavirus OC43 (PCR) Not Detected Coronavirus HKU1 (PCR) Not Detected Coronavirus 229E (PCR) Not Detected Coronavirus NL63 (PCR) Not Detected Human Metapneumovir PCR Not Detected Influenza A (RT-PCR) Not Detected Influenza B (RT-PCR) Not Detected M. pneumoniae (PCR) Not Detected Parainfluenza 1 (PCR) Not Detected Parainfluenza 2 (PCR) Not Detected Parainfluenza 3 (PCR) Not Detected Parainfluenza 4 (PCR) Not Detected RSV (PCR) Not Detected Entero/Rhino (PCR) Detected A SARS-CoV-2 RNA (RT-PCR) Not Detected Microbiology Microbiology Results: Microbiology 02/01/24 20:04 Blood Culture - Preliminary Blood - Venous No growth after 24 hours. 02/01/24 20:04 Blood Culture - Preliminary Blood - Venous No growth after 24 hours. Assessment and Plan (1) COPD (chronic obstructive pulmonary disease): Status: Acute (2) Asthma: Status: Acute Assessment and Plan: 48-year-old female with pertinent history of asthma/COPD overlap syndrome, tobacco use disorder, opioid use disorder on methadone who presents to the emergency department for evaluation of dyspnea. Acute hypoxemic respiratory failure due to acute exacerbation of asthma/COPD overlap syndrome: Will admit patient with supplemental oxygen. Initiating she due and p.r.n. DuoNebs. Not on home inhaler. Continue supplemental oxygen and wean as tolerated, maintain oxygen saturation greater than 88%. Initiating azithromycin for pleiotropic effect. Also initiating systemic steroids Reactive leukocytosis-resolved. Hypomagnesemia: Repleted Tobacco use disorder: Counseled regarding cessation. Nicotine patch while in the hospital Homelessness: Consulted case management Opioid use disorder: On methadone depressed -added psych eval DVT prophylaxis: Lovenox Full code ongoing need for stay-hospital stay for supplemental oxygen, monitoring of respiratory status, systemic steroids (as above), which is not possible in a lesser acute setting. Quality Stroke Does the patient have a stroke diagnosis?: No VTE Prior VTE?: No VTE Risk Level:: Medical - moderate - high VTE Device Contraindication: Treatment Not Indicated VTE Drug Contraindication: N/A - Med Ordered
--- NOTE | 2024-02-03 16:54 | P.CNPS_ITS ---
History of Present Illness Date of Service: 02/03/2024 Chief Complaint: sob, cough depression Reason for Consult: Depression Requesting physician: Diane Zhang Discussed with referring provider: Yes (jjer) Sources of Information: patient interviewed, chart reviewed and crisis/core team assessment reviewed Additional Sources of Information: pt asks that tw not contact family at this time. HPI Narrative: 48 yo female to ER with reports of cough for four days, needing to sleep outside due to homelessness, hx of COPD, Asthma. Hx of opiate use disorder, currently on Methadone 115 mg daily, nicotine use disorder, depression-untreated for several years. Found to have bronchitis and exacerbation of asthma and currently medically admitted. Pt is well engaged in interview, her voice is soft due to current respiratory illness. She reports an increase in depressive sx for the past 6-8 months. She reports she awakens each morning, not wanting to go through another day , cries often has poor sleep and persistent SI, nightmares. Reports a history of several years of depression, since childhood and trauma history. Reports feelings of worthlessness, feeling done , severe anxiety-social, phobic sx. States she shakes and rocks to help with sx mgt however it is ineffective. When asked how we can be helpful with current issues, pt responds, I want help to have a better mind. Past Psychiatric History: IP: ~20 years ago. 3 hospitalizations in total. Medicine was helpful. OP: No current alliances Trials: Sertraline, Trazodone SA: One attempt by history where she reports drinking bleach several years ago Denies hx of wilma, psychosis, perceptual alterations She does report fear of people due to trauma hx. Medical Evaluation Reviewed: Yes Review of Systems Review of Systems Asthma, COPD exacerbation Bronchitis [facility] Medical History (Updated 02/03/24 @ 17:25 by Kathryn Toussaint, [employer]) Homeless Opioid use disorder, severe, on maintenance therapy Recurrent major depression PTSD (post-traumatic stress disorder) Opioid use disorder Tobacco use disorder COPD (chronic obstructive pulmonary disease) Asthma Narrative: Abdominal Hernia Back pain and issues Hx of hip fracture while incarcerated Degenerative Disc Disease Chronic pain Family History: mental health and addictions history on both sides Social History: Born in [place]. Raised in [place] and [place]. Foster family was in [place]. Bio parents and brothers were in [place]. Pt went between both and was adopted by the [place] foster family at age 12. She was able to find her biological brothers after 24 years of searching Pt attended 2 years of college for [employer]. She has 3 children-daughters 27,24,22; one daughter is working on a [employer] degree currently and 2 grandchildren, 6 and 4 Homeless-shelters are triggering for pt with her trauma hx. 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 Pt is on several waiting lists for housing Substance History: Heroin, Cocaine Methadone ~1 year with [facility] Hx of detox and [facility] admits before Trauma History: Affirms Diagnostics Vital Signs (24Hr): Vital Signs - 24 hr 02/02/24 20:00 02/03/24 06:00 02/03/24 08:05 Temperature 97.2 F 96.9 F Pulse Rate 65 81 100 Respiratory Rate 14 12 16 Blood Pressure 131/76 107/64 Pulse Oximetry 92 96 Oxygen Delivery Method Nasal Cannula Nasal Cannula Oxygen Flow Rate 1 1 02/03/24 11:41 02/03/24 13:21 02/03/24 15:36 Temperature 98.0 F Pulse Rate 106 H 86 86 Respiratory Rate 16 20 20 Blood Pressure 124/84 Pulse Oximetry 95 Oxygen Delivery Method Room Air Oxygen Flow Rate BMI result Body Mass Index 24.1 Labs 02/02/24 04:57 02/02/24 04:57 Labs: Laboratory Results - last 48 hr 02/01/24 02/01/24 02/02/24 17:46 20:30 04:57 WBC 15.1 H 9.6 RBC 4.21 3.78 L Hgb 12.7 11.2 L Hct 36.6 L 34.0 L MCV 86.9 89.9 MCH 30.2 29.6 MCHC 34.7 32.9 RDW 13.7 13.9 Plt Count 239 231 MPV 9.2 L 9.9 Immature Gran % (Auto) 0.5 H 0.5 H Neut % (Auto) 83.1 H 88.4 H Lymph % (Auto) 10.8 L 7.8 L Talbot % (Auto) 4.8 3.2 Eos % (Auto) 0.5 0.0 Baso % (Auto) 0.3 0.1 Lymph # (Auto) 1.6 0.8 L Talbot # (Auto) 0.7 0.3 Eos # (Auto) 0.1 0.0 Baso # (Auto) 0.1 0.0 Abs Immat Gran (auto) 0.07 H 0.05 H Absolute Neuts (auto) 12.6 H 8.5 H Absolute Nucleated RBC 0.000 0.000 Nucleated RBC % (auto) 0.0 0.0 Sodium 136 138 Potassium 3.5 4.1 Chloride 103 105 Carbon Dioxide 23 23 Anion Gap 14 14 BUN 13 23 H Creatinine 0.90 0.80 Estim Creat Clear Calc 70.2 79.1 Estimated GFR > 60 > 60 Random Glucose 142 H 160 H Lactic Acid 2.0 Calcium 9.3 9.0 Magnesium 1.4 L* 2.2 Total Bilirubin 0.4 AST 30 ALT 26 Alkaline Phosphatase 66 Troponin I High Sens < 2.7 C-Reactive Protein 4.87 H Total Protein 6.6 Albumin 3.9 Beta HCG, Quant < 2 Respiratory Panel Wall Adenovirus (Rapid PCR) B.pert (TEM-PCR) B.parapertussis DNA PCR C. pneumoniae DNA (PCR) Coronavirus OC43 (PCR) Coronavirus HKU1 (PCR) Coronavirus 229E (PCR) Coronavirus NL63 (PCR) Human Metapneumovir PCR Influenza A (RT-PCR) Influenza Type A (PCR) NEGATIVE Influenza B (RT-PCR) Influenza Type B (PCR) NEGATIVE M. pneumoniae (PCR) Parainfluenza 1 (PCR) Parainfluenza 2 (PCR) Parainfluenza 3 (PCR) Parainfluenza 4 (PCR) RSV (PCR) RSV RNA Qual (PCR) NEGATIVE Entero/Rhino (PCR) SARS-CoV-2 RNA (RT-PCR) NEGATIVE 02/02/24 14:32 WBC RBC Hgb Hct MCV MCH MCHC RDW Plt Count MPV Immature Gran % (Auto) Neut % (Auto) Lymph % (Auto) Talbot % (Auto) Eos % (Auto) Baso % (Auto) Lymph # (Auto) Talbot # (Auto) Eos # (Auto) Baso # (Auto) Abs Immat Gran (auto) Absolute Neuts (auto) Absolute Nucleated RBC Nucleated RBC % (auto) Sodium Potassium Chloride Carbon Dioxide Anion Gap BUN Creatinine Estim Creat Clear Calc Estimated GFR Random Glucose Lactic Acid Calcium Magnesium Total Bilirubin AST ALT Alkaline Phosphatase Troponin I High Sens C-Reactive Protein Total Protein Albumin Beta HCG, Quant Respiratory Panel Wall See Note Adenovirus (Rapid PCR) Not Detected B.pert (TEM-PCR) Not Detected B.parapertussis DNA PCR Not Detected C. pneumoniae DNA (PCR) Not Detected Coronavirus OC43 (PCR) Not Detected Coronavirus HKU1 (PCR) Not Detected Coronavirus 229E (PCR) Not Detected Coronavirus NL63 (PCR) Not Detected Human Metapneumovir PCR Not Detected Influenza A (RT-PCR) Not Detected Influenza Type A (PCR) Influenza B (RT-PCR) Not Detected Influenza Type B (PCR) M. pneumoniae (PCR) Not Detected Parainfluenza 1 (PCR) Not Detected Parainfluenza 2 (PCR) Not Detected Parainfluenza 3 (PCR) Not Detected Parainfluenza 4 (PCR) Not Detected RSV (PCR) Not Detected RSV RNA Qual (PCR) Entero/Rhino (PCR) Detected A SARS-CoV-2 RNA (RT-PCR) Not Detected Imaging Radiology Impressions: ITS Impressions Chest X-Ray 02/01/24 17:37 IMPRESSION: Clear lungs. Electronically signed by: Shana Paul MD 02/01/2024 07:02 PM [facility] Mental Status Exam Mental Status Exam Patient Appearance: Fatigued Patient Orientation: Person, Place, Time and Situation Level of Consciousness: Alert Patient Behavior: Talkative, Cooperative, Anxious, Fearful, Distractible, Good Eye Contact and Crying Mood Description: Depressed, Anxious and Apprehensive Affect Description: Flat Patient Cognition Impaired: No Ability to Follow Directions: Good Speech Pattern: Spontaneous Speech and Soft-Spoken Memory Description: Intact Hallucinations: None Delusions: Not Present Perceptual Disturbances: Depersonalization and Derealization Thought Process: Distracted and Rumination Thought Content: positive for Circumstantial, positive for Perseveration and positive for Suicidal Ideation Depressive Symptoms: Increased Anxiety, Insomnia, Difficulty Sleeping, Changes in Appetite, Crying Spells, Loss of Int. in Activity, Feelings of Worthlessness, Hopelessness, Unhappiness, Increased Fatigue, Thoughts of /Suicide, Low Self Esteem, Loss of Energy and Difficulty Concentrating Judgement: Fair (pt wanting help at this time.) Medications Medications Current Medications Acetaminophen (Acetaminophen 325 Mg Tablet) 650 mg PO Q6H PRN PRN Reason: Pain, Mild (Pain Scale 1-3), fever or headache Last Admin: 02/02/24 13:42 Dose: 650 mg Albuterol/Ipratropium (Albuterol/Iprat 2.5/0.5mg 3 Ml Ampul.Neb) 3 ml INHALE RQ4H WHILE AWAKE [facility] Last Admin: 02/03/24 15:36 Dose: 3 ml Albuterol/Ipratropium (Albuterol/Iprat 2.5/0.5mg 3 Ml Ampul.Neb) 3 ml INHALE Q4H PRN PRN Reason: Wheezing Last Admin: 02/03/24 03:27 Dose: 3 ml Calcium Carbonate (Calcium Carbonate 750 Mg Tab.Chew) 750 mg PO Q4H PRN PRN Reason: Heartburn Enoxaparin Sodium (Enoxaparin Sodium 40 Mg/0.4 Ml Syringe) 40 mg SUBCUT Q24H [facility] Last Admin: 02/02/24 20:36 Dose: 40 mg Guaifenesin/Codeine Phosphate (Guaifen/Codeine Sf 200/20/10ml 10 Ml Liquid) 10 ml PO Q4H PRN PRN Reason: Cough Last Admin: 02/03/24 08:51 Dose: 10 ml Azithromycin 500 mg/ Sodium (Chloride) 250 mls @ 125 mls/hr IV Q24H [facility] Last Infusion: 02/02/24 22:54 Dose: Infused Loratadine (Loratadine 10 Mg Tablet) 10 mg PO DAILY [facility] Last Admin: 02/03/24 08:53 Dose: 10 mg Magnesium Hydroxide (Milk Of Magnesia 30 Ml Oral.Susp) 30 ml PO DAILY PRN PRN Reason: Constipation Melatonin (Melatonin 3 Mg Tablet) 6 mg PO BEDTIME PRN PRN Reason: Insomnia Methadone HCl (Methadone Hcl 20 Mg/2 Ml Oral.Conc) 115 mg PO DAILY [facility] Last Admin: 02/03/24 08:49 Dose: 115 mg Nicotine (Nicotine 14 Mg Patch.Td24) 14 mg TRANSDERMA DAILY [facility] Last Admin: 02/03/24 08:51 Dose: 14 mg Ondansetron HCl (Ondansetron Hcl 4 Mg/2 Ml Vial) 4 mg IVPUSH Q8H PRN PRN Reason: Nausea and Vomiting Prednisone (Prednisone 20 Mg Tablet) 40 mg PO DAILY [facility] Last Admin: 02/03/24 08:52 Dose: 40 mg Sodium Chloride (0.9 % Sodium Chloride Flush 3 Ml Syringe) 3 ml IVFLUSH QSHIFT [facility] Last Admin: 02/03/24 14:13 Dose: Not Given Allergies Allergies Allergy/AdvReac Type Severity Reaction Status Date / Time No Known Allergies Allergy Unverified 02/01/24 17:35 Assessment & Plan Assessment & Plan (1) PTSD (post-traumatic stress disorder): Status: Acute Code(s): F43.10 - Post-traumatic stress disorder, unspecified (2) Recurrent major depression: Status: Acute Code(s): F33.9 - Major depressive disorder, recurrent, unspecified (3) Opioid use disorder, severe, on maintenance therapy: Status: Acute Code(s): F11.20 - Opioid dependence, uncomplicated (4) Tobacco use disorder: Status: Acute Code(s): F17.200 - Nicotine dependence, unspecified, uncomplicated (5) Homeless: Status: Acute Code(s): Z59.00 - Homelessness unspecified Plan PTSD, Recurrent Major Depression with SI, Opiate Use Disorder-Methadone Maintenance, Nicotine Use Disorder. Plan: Medical admit for bronchitis, exacerbation of asthma and COPD Diagnostics Collateral contact pt declines today Begin Sertraline 25 mg a.m Trazodone 50 mg HS. MRx1 Olanzapine 5 mg bid prn agitation, anxiety Addiction consult, Methadone dosing, pt questions if she needs an increase When medically cleared, consider in pt psychiatry admission to treat depression, continue medication titration, manage SI and plan aftercare. Total time managing care of this patient today ____ minutes. Patient educated on: medication risk/benefits and therapeutic strategies Informed Consent: understands
[2024-02-03] MEDS: OLANZapine 5 MG TABLET PO (22:14)
[2024-02-03] MEDS: Acetaminophen 325 MG TABLET 650 MG PO (22:14)
[2024-02-03] MEDS: Enoxaparin Sodium 40 MG/0.4 ML SYRINGE SUBCUT (22:15)
[2024-02-03] MEDS: Azithromycin 500 MG in 0.9 % Sodium Chloride 250 ML 125 MG IV (22:15)
[2024-02-03] MEDS: traZODone HCL 50 MG TABLET PO (22:15)
[2024-02-04 00:27] VITALS: BMI 20.9
[2024-02-04 01:48] VITALS: BP 121/67; PULSE 91; RESP 16; TEMP 36.4; O2SAT 96
[2024-02-04 03:14] VITALS: BP 108/70; PULSE 79; RESP 16; TEMP 36.7; O2SAT 94
[2024-02-04] MEDS: guaiFEN/Codeine SF 200/20/10ML 10 ML LIQUID PO ×2 (05:19→10:44)
[2024-02-04 07:16] VITALS: BP 130/77; PULSE 85; RESP 16; TEMP 36.1; O2SAT 97
[2024-02-04] MEDS: Albuterol/Iprat 2.5/0.5MG 3 ML AMPUL.NEB INHALE ×2 (08:00→11:50)
[2024-02-04 08:04] VITALS: PULSE 85; RESP 16
[2024-02-04 09:27] LABS: Estimated Average Glucose 94 mg/dL; Hemoglobin A1C 98.5908 umol/L; Hemoglobin A1c % 4.9 % (<6.0); Total Hemoglobin (HGBA1C) 3230.7957 umol/L
[2024-02-04 09:44] LABS: Cholesterol 149 mg/dL (<200); HDL Cholesterol 50 mg/dL (>40); LDL Cholesterol Calculated 74 mg/dL (<100); Triglycerides 129 mg/dL (<150)
[2024-02-04 10:03] LABS: Thyroid Stimulating Hormone 3.34 uIU/mL (0.32-4.0)
[2024-02-04 10:18] LABS: Vitamin B12 383 pg/mL (200-900)
[2024-02-04] MEDS: predniSONE 20 MG TABLET 40 MG PO (10:34)
[2024-02-04] MEDS: Folic Acid 1 MG TABLET PO (10:34)
[2024-02-04] MEDS: Multivitamin TABLET 1 TAB PO (10:34)
[2024-02-04] MEDS: Loratadine 10 MG TABLET PO (10:34)
[2024-02-04] MEDS: Nicotine 14 MG PATCH.TD24 TRANSDERMA (10:34)
[2024-02-04] MEDS: Sertraline HCL 25 MG TABLET PO (10:34)
[2024-02-04] MEDS: Thiamine HCL 100 MG TABLET PO (10:34)
[2024-02-04] MEDS: 0.9 % Sodium Chloride Flush 3 ML SYRINGE IVFLUSH (10:35)
[2024-02-04] MEDS: methADONE HCl 20 MG/2 ML ORAL.CONC 115 MG PO (10:35)
[2024-02-04] MEDS: Acetaminophen 325 MG TABLET 650 MG PO (10:44)
[2024-02-04 11:51] VITALS: PULSE 78; O2SAT 20
--- NOTE | 2024-02-04 13:27 | P.DS_ITS ---
DS: Providers Provider Date of Service: 02/04/24 Date of admission: 02/01/24 19:46 Date of discharge: 02/04/24 Primary care physician: None Physician Consults: 02/03/24 12:27 Consult to Psychiatry Routine Consulting Provider: Psych Covering Reason for consultation: depression Has provider been notified: No 02/04/24 07:14 Consult to Care Team Routine Comment: Reason for consultation: medically clear-eval for inpatient psych Has provider been notified: No Attending physician on discharge: Diaen Zhang Discharging clinician: Diane Zhang DS: Diagnosis Discharge Diagnosis (1) PTSD (post-traumatic stress disorder): Status: Acute (2) Recurrent major depression: Status: Acute (3) Opioid use disorder, severe, on maintenance therapy: Status: Acute (4) Tobacco use disorder: Status: Acute (5) Homeless: Status: Acute DS: Summary Hospital Course Hospital Course: HPI:48-year-old female with pertinent history of asthma/COPD overlap syndrome, tobacco use disorder, opioid use disorder on methadone who presents to the emergency department for evaluation of dyspnea. Patient states her symptoms started 4 days prior to presentation. She has been having dyspnea which is worse with exertion. Also has been having productive cough with yellowish sputum production. Admits associated wheezing which is limiting her ambulation. Admits feeling feverish but no documented temperature. No chills, nausea, vomiting, chest pain, palpitations, abdominal pain, changes in urinary or bowel habits. In the emergency department, patient was found to be hypoxic and placed on supplemental oxygen. Given DuoNebs, IV azithromycin and steroids. Hospital course: Patient was admitted to the hospital because shortness of breath cough and phlegm: Found to have acute hypoxemic respiratory failure secondary to COPD/asthma overlap-started on nebs, steroids, antibiotics, had mild leukocytosis, chest x-ray and respiratory viral panel was done, blood cult ures sent: Chest x-ray negative, viral panel is positive for renal/enterovirus, blood culture negative at 48 hours, leukocytosis resolved. With above supportive care patient seems to be improved significantly. Continue prednisone 40 mg daily and azithromycin 250 mg daily for 4 more days. Hypomagnesemia repleted and resolved. Patient has PTSD, Recurrent Major Depression with SI: Seen by psych and care team-recommended inpatient psych admission for further management. Patient will be going to inpatient psych. Plan: Continue nebs, prednisone 40 mg daily and azithromycin 250 mg daily for 4 more days . Above management discussed with psych provider Miss Florence Odom. Assessment and plan coordination time spent 40 minute. Time Attestation Total time managing care of this patient today: 40 mintues. Discharge Coordination Time (in mins): as above. Quality: Safe Use of Opioids Does Pt have an Active Cancer Diagnosis on the Problem List?: No Quality: Stroke Does the patient have a stroke diagnosis?: No Physical Exam Vital Signs: Vital Signs: Last Vital Signs Temp 96.9 F 02/04/24 07:16 Pulse 78 02/04/24 11:51 Resp 16 02/04/24 08:04 BP 130/77 02/04/24 07:16 Pulse Ox 97 02/04/24 07:16 O2 Del Method Room Air 02/04/24 07:16 O2 Flow Rate 1 02/03/24 06:00 Oxygen Flow Rate 2 02/01/24 19:52 BMI result Body Mass Index 20.9 Appearance: Alert.? Oriented X3.? cvs: rrr, [id number]. res: air enrty fair , no rales or wheezing. abd: no rebound or guarding ,nt, bs present. ext pulses present , no cyanosis . neuro: axo3 , nonfocal. DS: Data Data Completed and Pending Labs on day of discharge: Laboratory Results - last 24 hr 02/04/24 08:10 Estimat Average Glucose 94 Hemoglobin A1c % 4.9 Triglycerides 129 Cholesterol 149 LDL Cholesterol, Calc 74 HDL Cholesterol 50 Vitamin B12 383 Folate 5.0 TSH 3.34 Preliminary micro results at discharge 02/01/24 20:04 Blood Culture - Preliminary Blood - Venous No growth after 48 hours. 02/01/24 20:04 Blood Culture - Preliminary Blood - Venous No growth after 48 hours. Imaging Chest x-ray: Radiologist's impression: ITS Impressions Chest X-Ray 02/01/24 17:37 IMPRESSION: Clear lungs. Electronically signed by: Shana Paul MD 02/01/2024 07:02 PM [facility] Discharge Plan Discharge Patient Disposition: Xfer Psychiatric Hosp Referrals: Physician,None [Primary Care Provider] - 1 Week Discharge Medications: Continued methadone 10 mg/5 mL Solution 115 mg PO DAILY Discharge Orders: Discharge Order (Routine); Ordered 02/04/24 Ordered By: Diane Zhang Diet: Advance to usual diet Activity on Discharge: As tolerated Stand Alone Forms: Patient Portal Discharge page Print Language: East Timorese
--- NOTE | 2024-02-04 13:36 | MHC.CM.PN ---
PT MEDICALLY CLEARED AND WILL TRANSFER TO INPT PSYCH
== END 2024-02-04 14:29 | DRG 145 ==
LOC: HO.ED 20:12 → HO.EDOVER 20:15 → HO.S3 02-03 22:40
PROVIDERS: Clinical Nurse Specialist Psychiatric/Mental Health, Adult; Physician Assistant Medical; Admitting Provider Student in an Organized Health Care Education/Training Program; Emergency Provider Emergency Medicine; Visit Provider Internal Medicine
DX: J20.9 Acute bronchitis, unspecified (principal); J96.01 Acute respiratory failure with hypoxia; J44.0 Chronic obstructive pulmonary disease with (acute) lower respiratory infection; J44.1 Chronic obstructive pulmonary disease with (acute) exacerbation; J45.41 Moderate persistent asthma with (acute) exacerbation; R45.851 Suicidal ideations; E83.42 Hypomagnesemia; B97.89 Other viral agents as the cause of diseases classified elsewhere; B97.10 Unspecified enterovirus as the cause of diseases classified elsewhere; F33.9 Major depressive disorder, recurrent, unspecified; F43.10 Post-traumatic stress disorder, unspecified; Z59.02 Unsheltered homelessness; F17.210 Nicotine dependence, cigarettes, uncomplicated; Z71.6 Tobacco abuse counseling; F11.20 Opioid dependence, uncomplicated; Z20.822 Contact with and (suspected) exposure to COVID-19
CPT/HCPCS: 0241U; 36415; 71046; 80048; 80053; 80061; 82607; 82746; 83036; 83605; 83735; 84443; 84484; 84702; 85025; 86140; 87040; 87633; 93005; 94640; 99285; J0456; J0696; J1650; J2919; J3475; S9485

== ENCOUNTER → 2024-02-01 17:36 | Outpatient (BNV) | payer OTHER, SELFPAY | PROVIDERS: Admitting Provider Student in an Organized Health Care Education/Training Program; Emergency Provider Emergency Medicine; Visit Provider Internal Medicine Cardiovascular Disease | DX: R00.0 Tachycardia, unspecified (principal) | CPT/HCPCS: 93010 ==

== ENCOUNTER → 2024-02-01 19:46 | Outpatient (BNV) | payer OTHER, SELFPAY | PROVIDERS: Admitting Provider Student in an Organized Health Care Education/Training Program; Emergency Provider Emergency Medicine; Visit Provider Student in an Organized Health Care Education/Training Program | DX: F43.10 Post-traumatic stress disorder, unspecified (principal); F33.9 Major depressive disorder, recurrent, unspecified; F11.20 Opioid dependence, uncomplicated; F17.200 Nicotine dependence, unspecified, uncomplicated; Z59.00 Homelessness unspecified; J44.9 Chronic obstructive pulmonary disease, unspecified; J45.909 Unspecified asthma, uncomplicated | CPT/HCPCS: 99222; 99231; 99232; 99239 ==

== ENCOUNTER → 2024-02-01 19:46 | Outpatient (BNV) | payer OTHER, SELFPAY | PROVIDERS: Admitting Provider Student in an Organized Health Care Education/Training Program; Emergency Provider Emergency Medicine; Visit Provider Clinical Nurse Specialist Psychiatric/Mental Health, Adult | DX: F33.2 Major depressive disorder, recurrent severe without psychotic features (principal); F11.20 Opioid dependence, uncomplicated; F43.11 Post-traumatic stress disorder, acute; F17.200 Nicotine dependence, unspecified, uncomplicated; Z59.00 Homelessness unspecified | CPT/HCPCS: 99232 ==

== ENCOUNTER 2024-02-04 14:38 | Inpatient (IN) | payer OTHER, SELFPAY ==
[2024-02-04 15:12] VITALS: BMI 18.9
[2024-02-04 15:13] VITALS: BP 117/73; PULSE 95; RESP 18; TEMP 36.7; O2SAT 97
--- NOTE | 2024-02-04 16:08 | PC.ADMIT ---
Pt admitted to [facility] from the Medical Surgical Floor at 1445. Pt was admitted to [place] [address] for an asthma exacerbation induced by Enterovirus. Pt tested positive for enterovirus on 02/01. Pt reports an increase in depressive symptoms which is why she was admitted to . Pt placed on 15 minute safety checks. Skin check/contraband search completed. Pt oriented to unit. Placed on Droplet precautions for the Enterovirus. Pt signed a CV. Pt has a history of a suicide attempt by ingesting bleach but does not remember when. Pt has a history of of inpatient level of care X3 about 20 years ago . Pt reports being off all psychiatric medications for the past 20 years. Pt reports daily use of marijuana and occasionally crack use. Sectioned 35 about 10 years ago . Pt is currently on Methadone 115mg which she received from [facility]. 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 Pt currently has no support system and is homeless. Pt was kicked out of brothers house 2 weeks ago. Pt is an active smoker. Smokes 6 cigarettes/day. Pt requested nicotine replacement and smoking cessation consult was placed. Pt declines flu vaccine at this time. Pt reports poor sleep and has frequent nightmares. History of trauma but did not elaborate. Safety tool & treatment plan completed.
--- NOTE | 2024-02-04 17:00 | HE.PHANOTE ---
RE: METHADONE DOSING Patient was transferred from [facility] to [facility] on 02/04/24. Last methadone 115 mg given at [facility] on 01/30 then she received 115 mg on S3 01/31 to 02/03.
[2024-02-04 20:00] VITALS: BP 122/73; PULSE 88; RESP 18; TEMP 36.4; O2SAT 96
[2024-02-04] MEDS: Albuterol Sulfate 90 MCG 8 GM INHALER 2 PUFF INHALE (21:18)
[2024-02-04] MEDS: Melatonin 3 MG TABLET 6 MG PO (21:19)
[2024-02-04] MEDS: guaiFEN/Codeine SF 200/20/10ML 10 ML LIQUID PO (21:19)
[2024-02-04] MEDS: hydrOXYzine HCL 25 MG TABLET PO (21:19)
[2024-02-04] MEDS: Nicotine Polacrilex 2 MG GUM 4 MG BUCCAL (21:19)
[2024-02-04] MEDS: Azithromycin 250 MG TABLET PO (21:20)
[2024-02-05 07:32] VITALS: BP 123/78; PULSE 79; RESP 16; TEMP 36.5; O2SAT 99
[2024-02-05] MEDS: methADONE HCl 20 MG/2 ML ORAL.CONC 115 MG PO (08:06)
--- NOTE | 2024-02-05 08:55 | HO.PSYADMNOT ---
HPI Date of Service: 02/05/24 Chief Complaint: Crisis Sources of Information: patient interviewed, chart reviewed and crisis/core team assessment reviewed HPI Subjective Notes: [place] Warning and Conditional Voluntary Narrative: Patient is a 48-year-old female with history of MDD, PTSD, opiate use disorder and cocaine use disorder who was seen on the medical floor due to increased depression. Per crisis report, patient initially came to [facility] due to not feeling well physically; patient was found to be hypoxic. Patient reports she has been chronically homeless for the past 3 years and has been living in the [facility] in [place]. She reports history of depression and has no current outpatient providers or medication. Patient reports she was temporarily living with her brother however, was asked to leave after an argument. denies SI/HI/VH/AH. Patient reports being hospitalized psychiatrically 20 years ago at [facility] in [place], [place]. Patient reports history of alcohol and substance use; she reports not using alcohol for the past 2 years after her girlfriend . hx of snorting heroin, last used 1 year ago. During admission assessment, patient presents alert and oriented x3. Calm and cooperative. Patient stated, I have had a long history of depression and I have not been medicated for 20 years. I'm having thoughts of suicide and feeling hopeless. I'm just trying to put one foot in front of the other. I got kicked out of my brother's house recently . Patient reports using crack 4-5 times a month and marijuana daily. She denies any other substance use at this time. She reports last used heroin 8 months ago. Patient reports she would like to start on some medications and get stabilized . Patient reports she does not want to go to a [place] [facility] [place] facility. Patient stated, I plan on going back to the [facility] because being around people is too scary. I have a lot of trauma. I live alone in the [facility]; it's better than being around people . Patient reports suicidal ideation with no plan. Patient denies HI/VH/AH. Past Psychiatric History: IP: ~20 years ago. 3 hospitalizations in total. Medicine was helpful. OP: No current alliances Trials: Sertraline, Trazodone SA: One attempt by history where she reports drinking bleach several years ago Denies hx of wilma, psychosis, perceptual alterations She does report fear of people due to trauma hx. Medical Evaluation Reviewed: Yes [facility] Medical History (Updated 02/05/24 @ 16:25 by Zahida Ruiz NP) Homeless Opioid use disorder, severe, on maintenance therapy Recurrent major depression PTSD (post-traumatic stress disorder) Opioid use disorder Tobacco use disorder COPD (chronic obstructive pulmonary disease) Asthma Family History: mental health and addictions history on both sides Social History: Born in [place]. Raised in [place] and [place]. Foster family was in [place]. Bio parents and brothers were in [place]. Pt went between both and was adopted by the [place] foster family at age 12. She was able to find her biological brothers after 24 years of searching Pt attended 2 years of college for [employer]. She has 3 children-daughters 27,24,22; one daughter is working on a [employer] degree currently and 2 grandchildren, 6 and 4 Homeless-shelters are triggering for pt with her trauma hx. 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 Pt is on several waiting lists for housing Substance History: History heroin use. Reports using crack 4 to 5 times a month. Daily marijuana use. Trauma History: Affirms Diagnostics Vital Signs (24Hr): Vital Signs - 24 hr 02/04/24 15:13 02/04/24 20:00 02/05/24 07:32 Temperature 98.0 F 97.6 F 97.7 F Pulse Rate 95 88 79 Respiratory Rate 18 18 16 Blood Pressure 117/73 122/73 123/78 Pulse Oximetry 97 96 99 Oxygen Delivery Method Room Air Room Air Room Air BMI result Body Mass Index 18.9 Labs 02/05/24 08:32 Meds/Allergies Meds Home Medications ?Medication ?Instructions ?Recorded ?Confirmed ?Type methadone 10 mg/5 mL oral solution 115 mg PO DAILY 02/01/24 02/01/24 History Allergies Allergies Allergy/AdvReac Type Severity Reaction Status Date / Time No Known Allergies Allergy Unverified 02/01/24 17:35 Mental Status Exam Mental Status Exam Narrative: Pt is alert and oriented; behavior is cooperative; dressed in casual attire; mood is described as anxious and depressed ; eye contact appropriate; Speech is normal rate, volume and not pressured; thought process is organized and goal directed; Thought content is on tx; otherwise pertinent to relevant topics and without any delusional content, paranoid ideations or grandiosity; denies HI/AH/VH. Patient reports suicidal ideation with no plan. Assessment & Plan Assessment & Plan (1) MDD (major depressive disorder), recurrent episode: Status: Acute Code(s): F33.9 - Major depressive disorder, recurrent, unspecified (2) PTSD (post-traumatic stress disorder): Status: Acute Code(s): F43.10 - Post-traumatic stress disorder, unspecified (3) Opioid use disorder, severe, on maintenance therapy: Status: Acute Code(s): F11.20 - Opioid dependence, uncomplicated (4) Cocaine use disorder: Status: Acute Code(s): F14.10 - Cocaine abuse, uncomplicated (5) Homeless: Status: Acute Code(s): Z59.00 - Homelessness unspecified Plan Patient is a 48-year-old female with history of MDD, PTSD, opiate use disorder and cocaine use disorder who was seen on the medical floor due to increased depression. Plan: CV 15 minute safety checks Continue medications from psychiatric consult Encourage groups Referral to outpatient psychiatric providers Discharge planning Patient educated on: diagnosis, medication risk/benefits, substance abuse and therapeutic strategies Reason for continued inpatient stay Substantial Risk for: harm to self and med/psych decompensation Statement Statement: I have reviewed the history and physical and performed a pertinent examination on my patient. No changes have occurred unless specified. If the History and Physical was not performed prior to admission, the Hospitalist's service will be consulted for completing the admission physical. Time Spent With Patient Time: Total time managing care of this patient today _60___ minutes.
[2024-02-05] MEDS: Nicotine 14 MG PATCH.TD24 TRANSDERMA (08:58)
[2024-02-05] MEDS: Loratadine 10 MG TABLET PO (08:58)
[2024-02-05] MEDS: Folic Acid 1 MG TABLET PO (08:59)
[2024-02-05] MEDS: Sertraline HCL 25 MG TABLET PO (08:59)
[2024-02-05] MEDS: Thiamine HCL 100 MG TABLET PO (08:59)
[2024-02-05] MEDS: predniSONE 20 MG TABLET 40 MG PO (08:59)
[2024-02-05] MEDS: Multivitamin TABLET 1 TAB PO (08:59)
[2024-02-05 09:01] LABS: Alanine Aminotransferase 41 U/L (0-31); Alkaline Phosphatase 73 U/L (39-117); Anion Gap 10 (12-20); Aspartate Amino Transferase 29 U/L (5-31); Bilirubin Total 0.1 mg/dL (0.0-1.0); Blood Urea Nitrogen 20 mg/dL (9-16); Calcium 9.5 mg/dL (8.4-10.2); Carbon Dioxide 34 mmol/L (22-29); Chloride 99 mmol/L (96-108); Cholesterol 183 mg/dL (<200); Creatinine Clr Calc Pharmacy 68.4; Estimated Glomerular Filt Rate > 60; Glucose Fasting 84 mg/dL (60-99); HDL Cholesterol 60 mg/dL (>40); LDL Cholesterol Calculated 95 mg/dL (<100); Sodium 139 mmol/L (135-145); Triglycerides 141 mg/dL (<150)
[2024-02-05 12:15] VITALS: PULSE 88; RESP 16; O2SAT 97
[2024-02-05] MEDS: Albuterol/Iprat 2.5/0.5MG 3 ML AMPUL.NEB INHALE ×3 (13:19→19:50)
--- NOTE | 2024-02-05 15:07 | MHC.CLN ---
NUTRITION CONSULT FOR WEIGHT LOSS. EMR REVIEWED WITH COMPARISON TO M/S ADM. INTAKE VERY GOOD DURING M/S ADM. SIGNIFICANT AND UNLIKELY WEIGHT VARIANCE. 02/04/24=50 KG AND 57 KG. 02/01/24=68.8 KG. NO OTHER WEIGHT HX VIEWED. BASED ON GOOD PO DURING M/S ADM, NO ADDITIONAL NUTRITION INTERVENTIONS AT THIS TIME. RECOMMEND CONFIRM ACCURATE BASE WEIGHT AND MONITOR PO INTAKE.
--- NOTE | 2024-02-05 16:03 | PC.RT ---
pt admitted to Psych floor form Medical floor. Pt was previous on nebulizers prior to going to the psych floor as pt was in an acute phase. Since pt has been discharged to and has been medically clear, this patient is able to do MDI inhalers. She does take them at home. She is in no resp distress. Sats 97% hr 86 rr 16. bs: slight exp wheeze man. Dr. Stephens told me to re-evalute this pt for nebulizers vs MDI.. pt in no resp distress and should do inhalers as this her her baseline at home. She is no longer acute. pt should also be on a laba as well due to copd maintenance. Due to prior order of Psych [facility]CH[employer] PICKUP/RECEIVING ASSOCIATE, we will continue nebulizers.
[2024-02-05 16:36] VITALS: PULSE 85; RESP 16; O2SAT 97
[2024-02-05 19:52] VITALS: PULSE 106; RESP 16; O2SAT 98
[2024-02-05 20:00] VITALS: BP 135/81; PULSE 93; RESP 17; TEMP 36.4; O2SAT 97
[2024-02-05] MEDS: Melatonin 3 MG TABLET 6 MG PO (21:18)
[2024-02-05] MEDS: hydrOXYzine HCL 25 MG TABLET PO (21:18)
[2024-02-05] MEDS: Acetaminophen 325 MG TABLET 650 MG PO (21:18)
[2024-02-05] MEDS: guaiFEN/Codeine SF 200/20/10ML 10 ML LIQUID PO (21:18)
[2024-02-05] MEDS: Azithromycin 250 MG TABLET PO (21:19)
[2024-02-05] MEDS: OLANZapine 5 MG TABLET PO (21:32)
[2024-02-05] MEDS: traZODone HCL 50 MG TABLET PO (21:32)
[2024-02-06] VITALS (7 sets, daily range): BP systolic 122–124; BP diastolic 70–71; PULSE 87–110; RESP 14–18; TEMP 36.6–37; O2SAT 91–99
[2024-02-06] MEDS: Albuterol Sulfate 90 MCG 8 GM INHALER 2 PUFF INHALE ×2 (02:04→13:20)
[2024-02-06] MEDS: traZODone HCL 50 MG TABLET PO ×2 (02:04→21:08)
[2024-02-06] MEDS: guaiFEN/Codeine SF 200/20/10ML 10 ML LIQUID PO ×4 (02:04→21:07)
[2024-02-06] MEDS: Ibuprofen 600 MG TABLET PO ×2 (02:04→21:07)
[2024-02-06] MEDS: Acetaminophen 325 MG TABLET 650 MG PO ×2 (06:23→12:24)
[2024-02-06] MEDS: methADONE HCl 20 MG/2 ML ORAL.CONC 115 MG PO (08:02)
[2024-02-06] MEDS: Albuterol/Iprat 2.5/0.5MG 3 ML AMPUL.NEB INHALE ×3 (08:05→19:56)
--- NOTE | 2024-02-06 08:07 | P.PNPSI_ITS ---
Subjective Subjective Date of Service: 02/06/24 Reason For Visit: Crisis Subjective Notes: Conditional Voluntary Interim History: The nursing staff reported the patient had been having symptoms of exacerbation of asthma, she had been coughing and she is on contact precautions. She has remained most of the time in her bed pleasant when engaged. She was crying and overwhelmed stating that she was feeling very anxious and depressed yesterday. She slept with medications for 7 hours. On interview, the patient reported that she had been feeling sick with shortness of breath, no changes in mental status. Mental Status Exam Mental Status Exam Patient Appearance: Appropriate Patient Orientation: Person and Situation Level of Consciousness: Awake and Appropriate Patient Behavior: Guarded and Passive Mood Description: Withdrawn Affect Description: Constricted Patient Cognition Impaired: Yes Ability to Follow Directions: Good Speech Pattern: Clear Hallucinations: None Delusions: Not Present Thought Process: Distracted and Slowed Thinking Thought Content: positive for [place] and positive for Circumstantial Judgement: Fair Diagnostics Vital Signs (24Hr): Vital Signs - 24 hr 02/05/24 12:15 02/05/24 16:36 02/05/24 19:52 Temperature Pulse Rate 88 85 106 H Respiratory Rate 16 16 16 Blood Pressure Pulse Oximetry Oxygen Delivery Method 02/05/24 20:00 02/06/24 02:07 02/06/24 06:22 Temperature 97.6 F 97.8 F 97.8 F Pulse Rate 93 110 H Respiratory Rate 17 Blood Pressure 135/81 Pulse Oximetry 97 97 91 L Oxygen Delivery Method Room Air Room Air Room Air BMI result Body Mass Index 18.9 Labs 02/05/24 08:32 Labs: Laboratory Results - last 48 hr 02/05/24 08:32 Sodium 139 Potassium 4.0 Chloride 99 Carbon Dioxide 34 H Anion Gap 10 L BUN 20 H Creatinine 0.81 Estim Creat Clear Calc 68.4 Estimated GFR > 60 Fasting Glucose 84 Calcium 9.5 Total Bilirubin 0.1 AST 29 ALT 41 H Alkaline Phosphatase 73 Total Protein 7.0 Albumin 4.0 Triglycerides 141 Cholesterol 183 LDL Cholesterol, Calc 95 HDL Cholesterol 60 Medications Medications Current Medications Acetaminophen (Acetaminophen 325 Mg Tablet) 650 mg PO Q6H PRN PRN Reason: Headache/Pain Mild Scale (1-3) Last Admin: 02/06/24 06:23 Dose: 650 mg Al Hydroxide/Mg Hydroxide (Magnesium Hydrox/Alum Hydrox 30 Ml Oral.Susp) 30 ml PO Q6H PRN PRN Reason: Heartburn/Nausea Albuterol Sulfate (Albuterol Sulfate 90 Mcg 8 Gm Inhaler) 2 puff INHALE RQ4H PRN PRN Reason: sob Last Admin: 02/06/24 02:04 Dose: 2 puff Albuterol/Ipratropium (Albuterol/Iprat 2.5/0.5mg 3 Ml Ampul.Neb) 3 ml INHALE RQ4H WHILE AWAKE [facility] Last Admin: 02/06/24 08:05 Dose: 3 ml Azithromycin (Azithromycin 250 Mg Tablet) 250 mg PO Q24H [facility] Stop: 02/08/24 21:00 Last Admin: 02/05/24 21:19 Dose: 250 mg Calcium Carbonate (Calcium Carbonate 750 Mg Tab.Chew) 750 mg PO Q4H PRN PRN Reason: Heartburn Guaifenesin/Codeine Phosphate (Guaifen/Codeine Sf 200/20/10ml 10 Ml Liquid) 10 ml PO Q4H PRN PRN Reason: Cough Last Admin: 02/06/24 06:23 Dose: 10 ml Hydroxyzine HCl (Hydroxyzine Hcl 25 Mg Tablet) 25 mg PO Q6H PRN PRN Reason: Anxiety Last Admin: 02/05/24 21:18 Dose: 25 mg Ibuprofen (Ibuprofen 600 Mg Tablet) 600 mg PO Q8H PRN PRN Reason: Pain, Moderate(Pain Scale 4-6) Last Admin: 02/06/24 02:04 Dose: 600 mg Loratadine (Loratadine 10 Mg Tablet) 10 mg PO DAILY [facility] Last Admin: 02/05/24 08:58 Dose: 10 mg Magnesium Hydroxide (Milk Of Magnesia 30 Ml Oral.Susp) 30 ml PO DAILY PRN PRN Reason: Constipation Melatonin (Melatonin 3 Mg Tablet) 6 mg PO BEDTIME PRN PRN Reason: Insomnia Last Admin: 02/05/24 21:18 Dose: 6 mg Methadone HCl (Methadone Hcl 20 Mg/2 Ml Oral.Conc) 115 mg PO DAILY [facility] Last Admin: 02/06/24 08:02 Dose: 115 mg Nicotine (Nicotine 14 Mg Patch.Td24) 14 mg TRANSDERMA DAILY [facility] Last Admin: 02/05/24 08:58 Dose: 14 mg Nicotine Polacrilex (Nicotine Polacrilex 2 Mg Gum) 4 mg BUCCAL Q2H PRN PRN Reason: Nicotine Cravings Last Admin: 02/04/24 21:19 Dose: 4 mg Olanzapine (Olanzapine 5 Mg Tablet) 5 mg PO BID PRN PRN Reason: anxiety, agitation Last Admin: 02/05/24 21:32 Dose: 5 mg Ondansetron HCl (Ondansetron Odt 8 Mg Tab.Rapdis) 8 mg TRANSLINGU Q12H PRN PRN Reason: Nausea and Vomiting Prednisone (Prednisone 20 Mg Tablet) [address] Stop: 02/08/24 09:00 Last Admin: 02/05/24 08:59 Dose: 40 mg Sertraline HCl (Sertraline Hcl 25 Mg Tablet) [address] Last Admin: 02/05/24 08:59 Dose: 25 mg Trazodone HCl (Trazodone Hcl 50 Mg Tablet) 50 mg PO BEDTIME MRX1 PRN PRN Reason: Insomnia Last Admin: 02/06/24 02:04 Dose: 50 mg Allergies Allergies Allergy/AdvReac Type Severity Reaction Status Date / Time No Known Allergies Allergy Unverified 02/01/24 17:35 Assessment & Plan Assessment & Plan (1) MDD (major depressive disorder), recurrent episode: Status: Acute Code(s): F33.9 - Major depressive disorder, recurrent, unspecified (2) PTSD (post-traumatic stress disorder): Status: Acute Code(s): F43.10 - Post-traumatic stress disorder, unspecified (3) Opioid use disorder, severe, on maintenance therapy: Status: Acute Code(s): F11.20 - Opioid dependence, uncomplicated (4) Cocaine use disorder: Status: Acute Code(s): F14.10 - Cocaine abuse, uncomplicated (5) Homeless: Status: Acute Code(s): Z59.00 - Homelessness unspecified Plan Patient is a 48-year-old female with history of MDD, PTSD, opiate use disorder and cocaine use disorder who was seen on the medical floor due to increased depression. Plan: CV 15 minute safety checks Continue medications from psychiatric consult Encourage groups Referral to outpatient psychiatric providers Discharge planning 02/05 still with respiratory symptoms, still anxious and depressed. Reason for continued inpatient stay Substantial Risk for: inability to function, rapid decompensation and med/psych decompensation Time Spent With Patient Time: Total time managing care of this patient today __20__ minutes.
[2024-02-06] MEDS: Loratadine 10 MG TABLET PO (09:32)
[2024-02-06] MEDS: Sertraline HCL 25 MG TABLET PO (09:32)
[2024-02-06] MEDS: predniSONE 20 MG TABLET 40 MG PO (09:32)
[2024-02-06] MEDS: Nicotine 14 MG PATCH.TD24 TRANSDERMA (09:33)
--- NOTE | 2024-02-06 13:02 | PC.NURSE ---
Call placed to Respiratory for updraft treatment. Respiratory stated they are short staffed , were dealing with emergencies . Respiratory suggested using inhaler however historically will not administer updraft if inhaler has been administered. Patient continues with SPO2 @98%on RA. Does not want to wait for respiratory, requesting inhaler and cough medication.
[2024-02-06] MEDS: Melatonin 3 MG TABLET 6 MG PO (21:07)
[2024-02-06] MEDS: OLANZapine 5 MG TABLET PO (21:07)
[2024-02-06] MEDS: Azithromycin 250 MG TABLET PO (21:08)
[2024-02-06] MEDS: hydrOXYzine HCL 25 MG TABLET PO (21:08)
[2024-02-07] MEDS: guaiFEN/Codeine SF 200/20/10ML 10 ML LIQUID PO ×4 (01:58→18:29)
[2024-02-07] MEDS: Acetaminophen 325 MG TABLET 650 MG PO ×3 (01:58→21:14)
[2024-02-07] MEDS: Albuterol Sulfate 90 MCG 8 GM INHALER 2 PUFF INHALE (01:58)
[2024-02-07] MEDS: traZODone HCL 50 MG TABLET PO ×2 (01:58→21:09)
[2024-02-07 07:10] VITALS: BP 133/82; PULSE 97; RESP 14; TEMP 36.9; O2SAT 98
--- NOTE | 2024-02-07 07:42 | HO.PSYCHPN ---
Subjective Subjective Date of Service: 02/07/24 Reason For Visit: Crisis Subjective Notes: Conditional Voluntary Interim History: The nursing staff reported the patient had been with blunted affect, isolative, not attending to groups. She wears her mask whenever she goes out in common areas. Saturation has improved slightly she reported passive suicidal ideation but she is safe in the unit. According to the staff, the patient has verbalized that her Zyprexa helps her with her anxiety. She slept 7 hours. Respiratory therapy came in the evening yesterday. On interview, the patient denies new symptoms she looks dysphoric. Mental Status Exam Mental Status Exam Patient Appearance: Appropriate Patient Orientation: Person and Situation Level of Consciousness: Awake Patient Behavior: Guarded and Passive Mood Description: Withdrawn Affect Description: Constricted Patient Cognition Impaired: Yes Ability to Follow Directions: Good Speech Pattern: Clear Hallucinations: None Delusions: Not Present Thought Process: Distracted and Slowed Thinking Thought Content: positive for Circumstantial Judgement: Fair Diagnostics Vital Signs (24Hr): Vital Signs - 24 hr 02/06/24 08:07 02/06/24 17:24 02/06/24 19:56 Temperature Pulse Rate 89 95 96 Respiratory Rate 18 17 16 Blood Pressure Pulse Oximetry Oxygen Delivery Method 02/06/24 20:00 Temperature 98.6 F Pulse Rate 104 H Respiratory Rate 16 Blood Pressure 122/71 Pulse Oximetry 97 Oxygen Delivery Method Room Air BMI result Body Mass Index 18.9 Labs 02/05/24 08:32 Labs: Laboratory Results - last 48 hr 02/05/24 08:32 Sodium 139 Potassium 4.0 Chloride 99 Carbon Dioxide 34 H Anion Gap 10 L BUN 20 H Creatinine 0.81 Estim Creat Clear Calc 68.4 Estimated GFR > 60 Fasting Glucose 84 Calcium 9.5 Total Bilirubin 0.1 AST 29 ALT 41 H Alkaline Phosphatase 73 Total Protein 7.0 Albumin 4.0 Triglycerides 141 Cholesterol 183 LDL Cholesterol, Calc 95 HDL Cholesterol 60 Medications Medications Current Medications Acetaminophen (Acetaminophen 325 Mg Tablet) 650 mg PO Q6H PRN PRN Reason: Headache/Pain Mild Scale (1-3) Last Admin: 02/07/24 01:58 Dose: 650 mg Al Hydroxide/Mg Hydroxide (Magnesium Hydrox/Alum Hydrox 30 Ml Oral.Susp) 30 ml PO Q6H PRN PRN Reason: Heartburn/Nausea Albuterol Sulfate (Albuterol Sulfate 90 Mcg 8 Gm Inhaler) 2 puff INHALE RQ4H PRN PRN Reason: sob Last Admin: 02/07/24 01:58 Dose: 2 puff Albuterol/Ipratropium (Albuterol/Iprat 2.5/0.5mg 3 Ml Ampul.Neb) 3 ml INHALE RQ4H WHILE AWAKE [facility] Last Admin: 02/06/24 19:56 Dose: 3 ml Azithromycin (Azithromycin 250 Mg Tablet) 250 mg PO Q24H [facility] Stop: 02/08/24 21:00 Last Admin: 02/06/24 21:08 Dose: 250 mg Calcium Carbonate (Calcium Carbonate 750 Mg Tab.Chew) 750 mg PO Q4H PRN PRN Reason: Heartburn Guaifenesin/Codeine Phosphate (Guaifen/Codeine Sf 200/20/10ml 10 Ml Liquid) 10 ml PO Q4H PRN PRN Reason: Cough Last Admin: 02/07/24 01:58 Dose: 10 ml Hydroxyzine HCl (Hydroxyzine Hcl 25 Mg Tablet) 25 mg PO Q6H PRN PRN Reason: Anxiety Last Admin: 02/06/24 21:08 Dose: 25 mg Ibuprofen (Ibuprofen 600 Mg Tablet) 600 mg PO Q8H PRN PRN Reason: Pain, Moderate(Pain Scale 4-6) Last Admin: 02/06/24 21:07 Dose: 600 mg Loratadine (Loratadine 10 Mg Tablet) 10 mg PO DAILY [facility] Last Admin: 02/06/24 09:32 Dose: 10 mg Magnesium Hydroxide (Milk Of Magnesia 30 Ml Oral.Susp) 30 ml PO DAILY PRN PRN Reason: Constipation Melatonin (Melatonin 3 Mg Tablet) 6 mg PO BEDTIME PRN PRN Reason: Insomnia Last Admin: 02/06/24 21:07 Dose: 6 mg Methadone HCl (Methadone Hcl 20 Mg/2 Ml Oral.Conc) 115 mg PO DAILY [facility] Last Admin: 02/06/24 08:02 Dose: 115 mg Nicotine (Nicotine 14 Mg Patch.Td24) 14 mg TRANSDERMA DAILY [facility] Last Admin: 02/06/24 09:33 Dose: 14 mg Nicotine Polacrilex (Nicotine Polacrilex 2 Mg Gum) 4 mg BUCCAL Q2H PRN PRN Reason: Nicotine Cravings Last Admin: 02/04/24 21:19 Dose: 4 mg Olanzapine (Olanzapine 5 Mg Tablet) 5 mg PO BID PRN PRN Reason: anxiety, agitation Last Admin: 02/06/24 21:07 Dose: 5 mg Ondansetron HCl (Ondansetron Odt 8 Mg Tab.Rapdis) 8 mg TRANSLINGU Q12H PRN PRN Reason: Nausea and Vomiting Prednisone (Prednisone 20 Mg Tablet) [address] Stop: 02/08/24 09:00 Last Admin: 02/06/24 09:32 Dose: 40 mg Sertraline HCl (Sertraline Hcl 25 Mg Tablet) [address] Last Admin: 02/06/24 09:32 Dose: 25 mg Trazodone HCl (Trazodone Hcl 50 Mg Tablet) 50 mg PO BEDTIME MRX1 PRN PRN Reason: Insomnia Last Admin: 02/07/24 01:58 Dose: 50 mg Allergies Allergies Allergy/AdvReac Type Severity Reaction Status Date / Time No Known Allergies Allergy Unverified 02/01/24 17:35 Assessment & Plan Assessment & Plan (1) MDD (major depressive disorder), recurrent episode: Status: Acute Code(s): F33.9 - Major depressive disorder, recurrent, unspecified (2) PTSD (post-traumatic stress disorder): Status: Acute Code(s): F43.10 - Post-traumatic stress disorder, unspecified (3) Opioid use disorder, severe, on maintenance therapy: Status: Acute Code(s): F11.20 - Opioid dependence, uncomplicated (4) Cocaine use disorder: Status: Acute Code(s): F14.10 - Cocaine abuse, uncomplicated (5) Homeless: Status: Acute Code(s): Z59.00 - Homelessness unspecified Plan Patient is a 48-year-old female with history of MDD, PTSD, opiate use disorder and cocaine use disorder who was seen on the medical floor due to increased depression. Plan: CV 15 minute safety checks Continue medications from psychiatric consult Encourage groups Referral to outpatient psychiatric providers Discharge planning 02/05 still with respiratory symptoms, still anxious and depressed. 02/06 still dysphoric, continue same treatment Reason for continued inpatient stay Substantial Risk for: inability to function, rapid decompensation and med/psych decompensation Time Spent With Patient Time: Total time managing care of this patient today __820__ minutes.
[2024-02-07] MEDS: methADONE HCl 20 MG/2 ML ORAL.CONC 115 MG PO (08:09)
[2024-02-07] MEDS: predniSONE 20 MG TABLET 40 MG PO (08:53)
[2024-02-07] MEDS: Ibuprofen 600 MG TABLET PO ×2 (08:53→18:28)
[2024-02-07] MEDS: Nicotine 14 MG PATCH.TD24 TRANSDERMA (08:53)
[2024-02-07] MEDS: Sertraline HCL 25 MG TABLET PO (08:53)
[2024-02-07] MEDS: Loratadine 10 MG TABLET PO (08:53)
--- NOTE | 2024-02-07 14:09 | PC.NURSE ---
Patient did not receive scheduled 0800 updraft treatment. Unable to reach respiratory therapy at [phone], [phone]. Patient SPO2 98%, audible wheeze. C/O not feeling well. Head Loader ANNA MARIE notified, suggested number [phone]. Call placed to [phone] with no response. Head Loader able to reach respiratory stating one therapist is in ICU unable to provide treatment at this time, 2nd therapist is covering whole hospital is aware patient is due for treatment. PRN Inhaler administered.
[2024-02-07] MEDS: Albuterol/Iprat 2.5/0.5MG 3 ML AMPUL.NEB INHALE (14:53)
[2024-02-07 14:55] VITALS: PULSE 95; RESP 15; O2SAT 99
--- NOTE | 2024-02-07 18:24 | PC.NURSE ---
Call placed to respiratory, unable to reach by phone. [place] Text sent to supervisor front ANNA MARIE who had respiratory over head paged to unit. Spoke to respiratory therapist who stated she was currently in ICU and once patients were stabilized would come to unit for to administer patients updraft. Asked if patient was wheezing, stating yesterday patients lung sounds were clear.
[2024-02-07] MEDS: OLANZapine 5 MG TABLET PO (18:28)
[2024-02-07 19:35] VITALS: BP 141/81; PULSE 98; TEMP 36.9; O2SAT 96
[2024-02-07] MEDS: hydrOXYzine HCL 25 MG TABLET PO (21:09)
[2024-02-07] MEDS: Melatonin 3 MG TABLET 6 MG PO (21:09)
[2024-02-07] MEDS: Azithromycin 250 MG TABLET PO (21:09)
[2024-02-08] VITALS (7 sets, daily range): BP systolic 129–153; BP diastolic 74–77; PULSE 96–111; RESP 16–20; TEMP 36.9; O2SAT 97–98
[2024-02-08] MEDS: methADONE HCl 20 MG/2 ML ORAL.CONC 115 MG PO (07:49)
[2024-02-08] MEDS: Albuterol/Iprat 2.5/0.5MG 3 ML AMPUL.NEB INHALE ×4 (08:13→20:02)
[2024-02-08] MEDS: Nicotine 14 MG PATCH.TD24 TRANSDERMA (08:26)
[2024-02-08] MEDS: predniSONE 20 MG TABLET 40 MG PO (08:27)
[2024-02-08] MEDS: Loratadine 10 MG TABLET PO (08:27)
[2024-02-08] MEDS: Sertraline HCL 25 MG TABLET PO (08:27)
[2024-02-08] MEDS: guaiFEN/Codeine SF 200/20/10ML 10 ML LIQUID PO ×2 (08:31→21:40)
--- NOTE | 2024-02-08 09:31 | HO.PSYCHPN ---
Subjective Subjective Date of Service: 02/08/24 Reason For Visit: Crisis Subjective Notes: Conditional Voluntary Interim History: Keeping to self. reports feeling depressed and tired. pt stated, everything I've been through and my trauma make me feel this way . She reports nightmares; start: prazosin 1mg PO bedtime; risks/benefits reviewed. denies SI/HI/VH/AH. Pt c/o labored breathing; seen by respiratory. Pt reports feels better after updrafts. Nursing to monitor. Medication Compliance: Yes Side effects from medications: No Attending Groups: No Review of Systems Constitutional: Reports as per HPI Eyes: Reports as per HPI Reports as per HPI Cardiovascular: Reports as per HPI Respiratory: Reports as per HPI Gastrointestinal: Reports as per HPI Genitourinary: Reports as per HPI Musculoskeletal: Reports as per HPI Skin/Breast: Reports as per HPI Reports as per HPI Psychiatric: Reports as per HPI Endocrine: Reports as per HPI Hematologic/Lymphatic: Reports as per HPI Allergic/Immunologic: Reports as per HPI Mental Status Exam Mental Status Exam Narrative: Pt is alert and oriented; behavior is cooperative; dressed in casual attire; mood is described as depressed ; eye contact appropriate; Speech is normal rate, volume and not pressured; thought process is organized and goal directed; Thought content is on tx; denies SI/HI/VH/AH. Diagnostics Vital Signs (24Hr): Vital Signs - 24 hr 02/07/24 14:55 02/07/24 19:35 02/08/24 08:13 Temperature 98.5 F Pulse Rate 95 98 96 Respiratory Rate 15 16 Blood Pressure 141/81 H Pulse Oximetry 96 Oxygen Delivery Method Room Air BMI result Body Mass Index 18.9 Labs 02/05/24 08:32 Medications Medications Current Medications Acetaminophen (Acetaminophen 325 Mg Tablet) 650 mg PO Q6H PRN PRN Reason: Headache/Pain Mild Scale (1-3) Last Admin: 02/07/24 21:14 Dose: 650 mg Al Hydroxide/Mg Hydroxide (Magnesium Hydrox/Alum Hydrox 30 Ml Oral.Susp) 30 ml PO Q6H PRN PRN Reason: Heartburn/Nausea Albuterol Sulfate (Albuterol Sulfate 90 Mcg 8 Gm Inhaler) 2 puff INHALE RQ4H PRN PRN Reason: sob Last Admin: 02/07/24 01:58 Dose: 2 puff Albuterol/Ipratropium (Albuterol/Iprat 2.5/0.5mg 3 Ml Ampul.Neb) 3 ml INHALE RQ4H WHILE AWAKE [facility] Last Admin: 02/08/24 08:13 Dose: 3 ml Azithromycin (Azithromycin 250 Mg Tablet) 250 mg PO Q24H [facility] Stop: 02/08/24 21:00 Last Admin: 02/07/24 21:09 Dose: 250 mg Calcium Carbonate (Calcium Carbonate 750 Mg Tab.Chew) 750 mg PO Q4H PRN PRN Reason: Heartburn Guaifenesin/Codeine Phosphate (Guaifen/Codeine Sf 200/20/10ml 10 Ml Liquid) 10 ml PO Q4H PRN PRN Reason: Cough Last Admin: 02/08/24 08:31 Dose: 10 ml Hydroxyzine HCl (Hydroxyzine Hcl 25 Mg Tablet) 25 mg PO Q6H PRN PRN Reason: Anxiety Last Admin: 02/07/24 21:09 Dose: 25 mg Ibuprofen (Ibuprofen 600 Mg Tablet) 600 mg PO Q8H PRN PRN Reason: Pain, Moderate(Pain Scale 4-6) Last Admin: 02/07/24 18:28 Dose: 600 mg Loratadine (Loratadine 10 Mg Tablet) 10 mg PO DAILY [facility] Last Admin: 02/08/24 08:27 Dose: 10 mg Magnesium Hydroxide (Milk Of Magnesia 30 Ml Oral.Susp) 30 ml PO DAILY PRN PRN Reason: Constipation Melatonin (Melatonin 3 Mg Tablet) 6 mg PO BEDTIME PRN PRN Reason: Insomnia Last Admin: 02/07/24 21:09 Dose: 6 mg Methadone HCl (Methadone Hcl 20 Mg/2 Ml Oral.Conc) 115 mg PO DAILY [facility] Last Admin: 02/08/24 07:49 Dose: 115 mg Nicotine (Nicotine 14 Mg Patch.Td24) 14 mg TRANSDERMA DAILY [facility] Last Admin: 02/08/24 08:26 Dose: 14 mg Nicotine Polacrilex (Nicotine Polacrilex 2 Mg Gum) 4 mg BUCCAL Q2H PRN PRN Reason: Nicotine Cravings Last Admin: 02/04/24 21:19 Dose: 4 mg Olanzapine (Olanzapine 5 Mg Tablet) 5 mg PO BID PRN PRN Reason: anxiety, agitation Last Admin: 02/07/24 18:28 Dose: 5 mg Ondansetron HCl (Ondansetron Odt 8 Mg Tab.Rapdis) 8 mg TRANSLINGU Q12H PRN PRN Reason: Nausea and Vomiting Sertraline HCl (Sertraline Hcl 25 Mg Tablet) [address] Last Admin: 02/08/24 08:27 Dose: 25 mg Trazodone HCl (Trazodone Hcl 50 Mg Tablet) 50 mg PO BEDTIME MRX1 PRN PRN Reason: Insomnia Last Admin: 02/07/24 21:09 Dose: 50 mg Allergies Allergies Allergy/AdvReac Type Severity Reaction Status Date / Time No Known Allergies Allergy Unverified 02/01/24 17:35 Assessment & Plan Assessment & Plan (1) MDD (major depressive disorder), recurrent episode: Status: Acute Code(s): F33.9 - Major depressive disorder, recurrent, unspecified (2) PTSD (post-traumatic stress disorder): Status: Acute Code(s): F43.10 - Post-traumatic stress disorder, unspecified (3) Opioid use disorder, severe, on maintenance therapy: Status: Acute Code(s): F11.20 - Opioid dependence, uncomplicated (4) Cocaine use disorder: Status: Acute Code(s): F14.10 - Cocaine abuse, uncomplicated (5) Homeless: Status: Acute Code(s): Z59.00 - Homelessness unspecified Plan Patient is a 48-year-old female with history of MDD, PTSD, opiate use disorder and cocaine use disorder who was seen on the medical floor due to increased depression. Plan: CV 15 minute safety checks Continue medications from psychiatric consult Encourage groups Referral to outpatient psychiatric providers Discharge planning 02/05 still with respiratory symptoms, still anxious and depressed. 02/06 still dysphoric, continue same treatment 02/07:Keeping to self. reports feeling depressed and tired. pt stated, everything I've been through and my trauma make me feel this way . She reports nightmares; start: prazosin 1mg PO bedtime; risks/benefits reviewed. Increase Zoloft to 50mg PO daily. denies SI/HI/VH/AH. Pt c/o labored breathing; seen by respiratory. Pt reports feels better after updrafts. Nursing to monitor. Patient educated on: diagnosis, medication risk/benefits and therapeutic strategies Reason for continued inpatient stay Substantial Risk for: med/psych decompensation Time Spent With Patient Time: Total time managing care of this patient today _20___ minutes.
[2024-02-08] MEDS: cloNIDine HCL 0.1 MG TABLET 0.05 MG PO (17:02)
[2024-02-08] MEDS: Mag&Al/Sim/Diphenhyd/Lidocaine 10 ML ORAL.SUSP PO ×2 (17:03→21:52)
[2024-02-08] MEDS: Prazosin HCL 1 MG CAPSULE PO (21:40)
[2024-02-08] MEDS: Azithromycin 250 MG TABLET PO (21:40)
[2024-02-08] MEDS: Ibuprofen 600 MG TABLET PO (21:41)
[2024-02-08] MEDS: Melatonin 3 MG TABLET 6 MG PO (21:41)
[2024-02-08] MEDS: OLANZapine 5 MG TABLET PO (21:41)
[2024-02-08] MEDS: traZODone HCL 50 MG TABLET PO (21:41)
[2024-02-09] MEDS: Mag&Al/Sim/Diphenhyd/Lidocaine 10 ML ORAL.SUSP PO ×4 (02:21→22:32)
[2024-02-09] MEDS: hydrOXYzine HCL 25 MG TABLET PO ×2 (02:22→21:52)
[2024-02-09] MEDS: traZODone HCL 50 MG TABLET PO ×2 (02:22→21:52)
[2024-02-09] MEDS: guaiFEN/Codeine SF 200/20/10ML 10 ML LIQUID PO ×3 (02:22→21:50)
[2024-02-09 07:32] VITALS: BP 120/72; PULSE 98; RESP 16; TEMP 36.4; O2SAT 97
[2024-02-09] MEDS: methADONE HCl 20 MG/2 ML ORAL.CONC 115 MG PO (08:01)
[2024-02-09] MEDS: Sertraline HCL 50 MG TABLET PO (08:03)
[2024-02-09] MEDS: cloNIDine HCL 0.1 MG TABLET 0.05 MG PO ×2 (08:03→15:40)
[2024-02-09] MEDS: Loratadine 10 MG TABLET PO (08:03)
[2024-02-09 08:05] VITALS: PULSE 97; RESP 16; O2SAT 97
[2024-02-09] MEDS: Albuterol/Iprat 2.5/0.5MG 3 ML AMPUL.NEB INHALE (08:05)
[2024-02-09] MEDS: Nicotine 14 MG PATCH.TD24 TRANSDERMA (08:43)
--- NOTE | 2024-02-09 08:46 | PC.RT ---
pt remains stable respiratory bullock. RR 16 BS: clear man HR: 96 Sat: 96% on room air. Able to walk more than 50 feet without and shorness of breath. Pt should be switched over to MDI;s at this time as pt does take these at home and does not need nebulizers anymore. Pt agrees that she is ready to be changed ti MDI Inahlers. She should be on Albuterol MDI prn 2-4 puffs and also would recommend a LABA for maintainence as well. Please tiger me if you have any questions.
--- NOTE | 2024-02-09 09:47 | P.PNPSI_ITS ---
Subjective Subjective Date of Service: 02/09/24 Reason For Visit: Crisis Subjective Notes: Conditional Voluntary Interim History: Active on unit, attending groups. less isolative. Pt feels anxiety has decreased however continues to report high depression. She reports suicidal ideation with plan to walk into traffic; pt reports feeling like a burden .denies HI/VH/AH. Patient reports she is trying to be out of my room more and go to groups . Pt reports breathing has improved; d/c duoneb. Nursing to monitor. Medication Compliance: Yes Side effects from medications: No Attending Groups: Yes Review of Systems Constitutional: Reports as per HPI Eyes: Reports as per HPI Reports as per HPI Cardiovascular: Reports as per HPI Respiratory: Reports as per HPI Gastrointestinal: Reports as per HPI Musculoskeletal: Reports as per HPI Skin/Breast: Reports as per HPI Reports as per HPI Psychiatric: Reports as per HPI Endocrine: Reports as per HPI Hematologic/Lymphatic: Reports as per HPI Allergic/Immunologic: Reports as per HPI Mental Status Exam Mental Status Exam Narrative: Pt is alert and oriented; behavior is cooperative; dressed in casual attire; mood is described as depressed ; eye contact appropriate; Speech is normal rate, volume and not pressured; thought process is organized and goal directed; Thought content is on tx; denies HI/VH/AH. pt reports suicidal ideation with plan to walk into traffic. Diagnostics Vital Signs (24Hr): Vital Signs - 24 hr 02/08/24 11:50 02/08/24 16:35 02/08/24 17:00 Temperature Pulse Rate 102 H 100 111 H Respiratory Rate 16 16 Blood Pressure 153/74 H Pulse Oximetry Oxygen Delivery Method 02/08/24 20:00 02/08/24 20:03 02/08/24 21:40 Temperature 98.5 F Pulse Rate 104 H 107 H Respiratory Rate 17 20 Blood Pressure 129/77 129/77 Pulse Oximetry 98 Oxygen Delivery Method Room Air 02/09/24 07:32 02/09/24 08:05 Temperature 97.5 F Pulse Rate 98 97 Respiratory Rate 16 16 Blood Pressure 120/72 Pulse Oximetry 97 Oxygen Delivery Method Room Air BMI result Body Mass Index 18.9 Labs 02/05/24 08:32 Medications Medications Current Medications Acetaminophen (Acetaminophen 325 Mg Tablet) 650 mg PO Q6H PRN PRN Reason: Headache/Pain Mild Scale (1-3) Last Admin: 02/07/24 21:14 Dose: 650 mg Al Hydroxide/Mg Hydroxide (Magnesium Hydrox/Alum Hydrox 30 Ml Oral.Susp) 30 ml PO Q6H PRN PRN Reason: Heartburn/Nausea Albuterol Sulfate (Albuterol Sulfate 90 Mcg 8 Gm Inhaler) 2 puff INHALE RQ4H PRN PRN Reason: sob Last Admin: 02/07/24 01:58 Dose: 2 puff Albuterol/Ipratropium (Albuterol/Iprat 2.5/0.5mg 3 Ml Ampul.Neb) 3 ml INHALE RQ4H WHILE AWAKE [facility] Last Admin: 02/09/24 08:05 Dose: 3 ml Calcium Carbonate (Calcium Carbonate 750 Mg Tab.Chew) 750 mg PO Q4H PRN PRN Reason: Heartburn Clonidine HCl (Clonidine Hcl 0.1 Mg Tablet) 0.05 mg PO BID@0800,1500 [facility]; Protocol Last Admin: 02/09/24 08:03 Dose: 0.05 mg Guaifenesin/Codeine Phosphate (Guaifen/Codeine Sf 200/20/10ml 10 Ml Liquid) 10 ml PO Q4H PRN PRN Reason: Cough Last Admin: 02/09/24 08:03 Dose: 10 ml Hydroxyzine HCl (Hydroxyzine Hcl 25 Mg Tablet) 25 mg PO Q6H PRN PRN Reason: Anxiety Last Admin: 02/09/24 02:22 Dose: 25 mg Ibuprofen (Ibuprofen 600 Mg Tablet) 600 mg PO Q8H PRN PRN Reason: Pain, Moderate(Pain Scale 4-6) Last Admin: 02/08/24 21:41 Dose: 600 mg Lidocaine/Diphenhydr/Alum/Mg/Simeth (Mag&Al/Sim/Diphenhyd/Lidocaine 10 Ml Oral.Susp) 10 ml PO Q4H PRN; Protocol PRN Reason: Sore Throat Last Admin: 02/09/24 08:04 Dose: 10 ml Loratadine (Loratadine 10 Mg Tablet) 10 mg PO DAILY [facility] Last Admin: 02/09/24 08:03 Dose: 10 mg Magnesium Hydroxide (Milk Of Magnesia 30 Ml Oral.Susp) 30 ml PO DAILY PRN PRN Reason: Constipation Melatonin (Melatonin 3 Mg Tablet) 6 mg PO BEDTIME PRN PRN Reason: Insomnia Last Admin: 02/08/24 21:41 Dose: 6 mg Methadone HCl (Methadone Hcl 20 Mg/2 Ml Oral.Conc) 115 mg PO DAILY [facility] Last Admin: 02/09/24 08:01 Dose: 115 mg Nicotine (Nicotine 14 Mg Patch.Td24) [address] Last Admin: 02/09/24 08:43 Dose: 14 mg Nicotine Polacrilex (Nicotine Polacrilex 2 Mg Gum) 4 mg BUCCAL Q2H PRN PRN Reason: Nicotine Cravings Last Admin: 02/04/24 21:19 Dose: 4 mg Olanzapine (Olanzapine 5 Mg Tablet) 5 mg PO BID PRN PRN Reason: anxiety, agitation Last Admin: 02/08/24 21:41 Dose: 5 mg Ondansetron HCl (Ondansetron Odt 8 Mg Tab.Rapdis) 8 mg TRANSLINGU Q12H PRN PRN Reason: Nausea and Vomiting Prazosin HCl (Prazosin Hcl 1 Mg Capsule) [address]; Protocol Last Admin: 02/08/24 21:40 Dose: 1 mg Sertraline HCl (Sertraline Hcl 50 Mg Tablet) 50 mg PO DAILY [facility] Last Admin: 02/09/24 08:03 Dose: 50 mg Trazodone HCl (Trazodone Hcl 50 Mg Tablet) 50 mg PO BEDTIME MRX1 PRN PRN Reason: Insomnia Last Admin: 02/09/24 02:22 Dose: 50 mg Allergies Allergies Allergy/AdvReac Type Severity Reaction Status Date / Time No Known Allergies Allergy Unverified 02/01/24 17:35 Assessment & Plan Assessment & Plan (1) MDD (major depressive disorder), recurrent episode: Status: Acute Code(s): F33.9 - Major depressive disorder, recurrent, unspecified (2) PTSD (post-traumatic stress disorder): Status: Acute Code(s): F43.10 - Post-traumatic stress disorder, unspecified (3) Opioid use disorder, severe, on maintenance therapy: Status: Acute Code(s): F11.20 - Opioid dependence, uncomplicated (4) Cocaine use disorder: Status: Acute Code(s): F14.10 - Cocaine abuse, uncomplicated (5) Homeless: Status: Acute Code(s): Z59.00 - Homelessness unspecified Plan Patient is a 48-year-old female with history of MDD, PTSD, opiate use disorder and cocaine use disorder who was seen on the medical floor due to increased depression. Plan: CV 15 minute safety checks Continue medications from psychiatric consult Encourage groups Referral to outpatient psychiatric providers Discharge planning 02/05 still with respiratory symptoms, still anxious and depressed. 02/06 still dysphoric, continue same treatment 02/07:Keeping to self. reports feeling depressed and tired. pt stated, everything I've been through and my trauma make me feel this way . She reports nightmares; start: prazosin 1mg PO bedtime; risks/benefits reviewed. Increase Zoloft to 50mg PO daily. denies SI/HI/VH/AH. Pt c/o labored breathing; seen by respiratory. Pt reports feels better after updrafts. Nursing to monitor. 02/08: Active on unit, attending groups. less isolative. Pt feels anxiety has decreased however continues to report high depression. She reports suicidal ideation with plan to walk into traffic; pt reports feeling like a burden .denies HI/VH/AH. Patient reports she is trying to be out of my room more and go to groups . Pt reports breathing has improved; d/c duoneb. Nursing to monitor. Patient educated on: diagnosis, medication risk/benefits and therapeutic strategies Reason for continued inpatient stay Substantial Risk for: harm to self and med/psych decompensation Time Spent With Patient Time: Total time managing care of this patient today _20___ minutes.
[2024-02-09] MEDS: Albuterol Sulfate 90 MCG 8 GM INHALER 2 PUFF INHALE (12:00)
[2024-02-09 13:18] VITALS: PULSE 98; RESP 16; O2SAT 98
[2024-02-09] MEDS: Nystatin Oral Susp 500,000 UNIT/5 ML ORAL.SUSP 400000 UNIT PO ×3 (13:59→21:49)
[2024-02-09 15:40] VITALS: BP 135/88
[2024-02-09 20:00] VITALS: BP 124/66; PULSE 98; RESP 16; TEMP 36.8; O2SAT 98
[2024-02-09] MEDS: OLANZapine 5 MG TABLET PO (21:50)
[2024-02-09] MEDS: Prazosin HCL 1 MG CAPSULE PO (21:52)
[2024-02-09] MEDS: Ibuprofen 600 MG TABLET PO (22:36)
[2024-02-10 07:54] VITALS: BP 118/65; PULSE 91; RESP 16; TEMP 36.3; O2SAT 97
[2024-02-10] MEDS: methADONE HCl 20 MG/2 ML ORAL.CONC 115 MG PO (08:30)
[2024-02-10] MEDS: Fluticasone/Vilanterol 100/25 BLST.W.DEV 1 PUFF INHALE (08:32)
[2024-02-10] MEDS: Nicotine 14 MG PATCH.TD24 TRANSDERMA (08:33)
[2024-02-10 08:34] VITALS: BP 118/65
[2024-02-10] MEDS: cloNIDine HCL 0.1 MG TABLET 0.05 MG PO ×2 (08:34→14:03)
[2024-02-10] MEDS: Loratadine 10 MG TABLET PO (08:35)
[2024-02-10] MEDS: Sertraline HCL 50 MG TABLET PO (08:35)
[2024-02-10] MEDS: Nystatin Oral Susp 500,000 UNIT/5 ML ORAL.SUSP 400000 UNIT PO ×4 (08:36→20:43)
--- NOTE | 2024-02-10 08:51 | P.PNPSI_ITS ---
Subjective Subjective Date of Service: 02/10/24 Reason For Visit: Crisis Subjective Notes: Conditional Voluntary Interim History: Active on unit, attending groups. Pt reports decreased anxiety; continues to feel depressed about my situation . She reports passive SI; pt stated, I would never hurt myself because of my kids . Per nursing, pt slept 7 hours last night. Patient reports she plans on obtaining a tent and returning to the [facility] when discharged. She plans on following up with outpatient providers. Medication Compliance: Yes Side effects from medications: No Attending Groups: Yes Review of Systems Constitutional: Reports as per HPI Eyes: Reports as per HPI Reports as per HPI Cardiovascular: Reports as per HPI Respiratory: Reports as per HPI Gastrointestinal: Reports as per HPI Musculoskeletal: Reports as per HPI Skin/Breast: Reports as per HPI Reports as per HPI Psychiatric: Reports as per HPI Endocrine: Reports as per HPI Hematologic/Lymphatic: Reports as per HPI Allergic/Immunologic: Reports as per HPI Mental Status Exam Mental Status Exam Narrative: Pt is alert and oriented; behavior is cooperative; dressed in casual attire; mood is described as depressed ; eye contact appropriate; Speech is normal rate, volume and not pressured; thought process is organized and goal directed; Thought content is on tx; denies HI/VH/AH. pt reports passive suicidal ideation but reports she would never act on it because of my kids . Diagnostics Vital Signs (24Hr): Vital Signs - 24 hr 02/09/24 13:18 02/09/24 15:40 02/09/24 20:00 Temperature 98.3 F Pulse Rate 98 98 Respiratory Rate 16 16 Blood Pressure 135/88 124/66 Pulse Oximetry 98 Oxygen Delivery Method Room Air 02/10/24 07:54 02/10/24 08:34 Temperature 97.3 F Pulse Rate 91 Respiratory Rate 16 Blood Pressure 118/65 118/65 Pulse Oximetry 97 Oxygen Delivery Method Room Air BMI result Body Mass Index 18.9 Labs 02/05/24 08:32 Medications Medications Current Medications Acetaminophen (Acetaminophen 325 Mg Tablet) 650 mg PO Q6H PRN PRN Reason: Headache/Pain Mild Scale (1-3) Last Admin: 02/07/24 21:14 Dose: 650 mg Al Hydroxide/Mg Hydroxide (Magnesium Hydrox/Alum Hydrox 30 Ml Oral.Susp) 30 ml PO Q6H PRN PRN Reason: Heartburn/Nausea Albuterol Sulfate (Albuterol Sulfate 90 Mcg 8 Gm Inhaler) 2 puff INHALE RQ4H PRN PRN Reason: sob Last Admin: 02/09/24 12:00 Dose: 2 puff Calcium Carbonate (Calcium Carbonate 750 Mg Tab.Chew) 750 mg PO Q4H PRN PRN Reason: Heartburn Clonidine HCl (Clonidine Hcl 0.1 Mg Tablet) 0.05 mg PO BID@0800,1500 [facility]; Protocol Last Admin: 02/10/24 08:34 Dose: 0.05 mg Fluticasone/Vilanterol (Fluticasone/Vilanterol 100/25 Blst.W.Dev) 1 puff INHALE RDAILY [facility] Last Admin: 02/10/24 08:32 Dose: 1 puff Guaifenesin/Codeine Phosphate (Guaifen/Codeine Sf 200/20/10ml 10 Ml Liquid) 10 ml PO Q4H PRN PRN Reason: Cough Last Admin: 02/09/24 21:50 Dose: 10 ml Hydroxyzine HCl (Hydroxyzine Hcl 25 Mg Tablet) 25 mg PO Q6H PRN PRN Reason: Anxiety Last Admin: 02/09/24 21:52 Dose: 25 mg Ibuprofen (Ibuprofen 600 Mg Tablet) 600 mg PO Q8H PRN PRN Reason: Pain, Moderate(Pain Scale 4-6) Last Admin: 02/09/24 22:36 Dose: 600 mg Lidocaine/Diphenhydr/Alum/Mg/Simeth (Mag&Al/Sim/Diphenhyd/Lidocaine 10 Ml Oral.Susp) 10 ml PO Q4H PRN; Protocol PRN Reason: Sore Throat Last Admin: 02/09/24 22:32 Dose: 10 ml Loratadine (Loratadine 10 Mg Tablet) 10 mg PO DAILY [facility] Last Admin: 02/10/24 08:35 Dose: 10 mg Magnesium Hydroxide (Milk Of Magnesia 30 Ml Oral.Susp) 30 ml PO DAILY PRN PRN Reason: Constipation Melatonin (Melatonin 3 Mg Tablet) 6 mg PO BEDTIME PRN PRN Reason: Insomnia Last Admin: 02/08/24 21:41 Dose: 6 mg Methadone HCl (Methadone Hcl 20 Mg/2 Ml Oral.Conc) 115 mg PO DAILY [facility] Last Admin: 02/10/24 08:30 Dose: 115 mg Nicotine (Nicotine 14 Mg Patch.Td24) 14 mg TRANSDERMA DAILY [facility] Last Admin: 02/10/24 08:33 Dose: 14 mg Nicotine Polacrilex (Nicotine Polacrilex 2 Mg Gum) 4 mg BUCCAL Q2H PRN PRN Reason: Nicotine Cravings Last Admin: 02/04/24 21:19 Dose: 4 mg Nystatin (Nystatin Oral Susp 500,000 Unit/5 Ml Oral.Susp) 400,[address]; Protocol Last Admin: 02/10/24 08:36 Dose: 400,000 unit Olanzapine (Olanzapine 5 Mg Tablet) 5 mg PO BID PRN PRN Reason: anxiety, agitation Last Admin: 02/09/24 21:50 Dose: 5 mg Ondansetron HCl (Ondansetron Odt 8 Mg Tab.Rapdis) 8 mg TRANSLINGU Q12H PRN PRN Reason: Nausea and Vomiting Prazosin HCl (Prazosin Hcl 1 Mg Capsule) [address]; Protocol Last Admin: 02/09/24 21:52 Dose: 1 mg Sertraline HCl (Sertraline Hcl 50 Mg Tablet) 50 mg PO DAILY [facility] Last Admin: 02/10/24 08:35 Dose: 50 mg Trazodone HCl (Trazodone Hcl 50 Mg Tablet) 50 mg PO BEDTIME MRX1 PRN PRN Reason: Insomnia Last Admin: 02/09/24 21:52 Dose: 50 mg Allergies Allergies Allergy/AdvReac Type Severity Reaction Status Date / Time No Known Allergies Allergy Unverified 02/01/24 17:35 Assessment & Plan Assessment & Plan (1) MDD (major depressive disorder), recurrent episode: Status: Acute Code(s): F33.9 - Major depressive disorder, recurrent, unspecified (2) PTSD (post-traumatic stress disorder): Status: Acute Code(s): F43.10 - Post-traumatic stress disorder, unspecified (3) Opioid use disorder, severe, on maintenance therapy: Status: Acute Code(s): F11.20 - Opioid dependence, uncomplicated (4) Cocaine use disorder: Status: Acute Code(s): F14.10 - Cocaine abuse, uncomplicated (5) Homeless: Status: Acute Code(s): Z59.00 - Homelessness unspecified Plan Patient is a 48-year-old female with history of MDD, PTSD, opiate use disorder and cocaine use disorder who was seen on the medical floor due to increased depression. Plan: CV 15 minute safety checks Continue medications from psychiatric consult Encourage groups Referral to outpatient psychiatric providers Discharge planning 02/05 still with respiratory symptoms, still anxious and depressed. 02/06 still dysphoric, continue same treatment 02/07:Keeping to self. reports feeling depressed and tired. pt stated, everything I've been through and my trauma make me feel this way . She reports nightmares; start: prazosin 1mg PO bedtime; risks/benefits reviewed. Increase Zoloft to 50mg PO daily. denies SI/HI/VH/AH. Pt c/o labored breathing; seen by respiratory. Pt reports feels better after updrafts. Nursing to monitor. 02/08: Active on unit, attending groups. less isolative. Pt feels anxiety has decreased however continues to report high depression. She reports suicidal ideation with plan to walk into traffic; pt reports feeling like a burden .denies HI/VH/AH. Patient reports she is trying to be out of my room more and go to groups . Pt reports breathing has improved; d/c duoneb. Nursing to monitor. 02/09: Active on unit, attending groups. Pt reports decreased anxiety; continues to feel depressed about my situation . She reports passive SI; pt stated, I would never hurt myself because of my kids . Per nursing, pt slept 7 hours last night. Patient reports she plans on obtaining a tent and returning [facility] when discharged. She plans on following up with outpatient providers. Continue current tx plan. Patient educated on: diagnosis, medication risk/benefits and therapeutic strategies Reason for continued inpatient stay Substantial Risk for: med/psych decompensation Time Spent With Patient Time: Total time managing care of this patient today _20___ minutes.
[2024-02-10] MEDS: Mag&Al/Sim/Diphenhyd/Lidocaine 10 ML ORAL.SUSP PO ×2 (12:53→19:04)
[2024-02-10 14:03] VITALS: BP 121/74
[2024-02-10 20:00] VITALS: BP 129/74; PULSE 85; RESP 16; TEMP 36.9; O2SAT 93
[2024-02-10] MEDS: guaiFEN/Codeine SF 200/20/10ML 10 ML LIQUID PO (20:43)
[2024-02-10] MEDS: OLANZapine 5 MG TABLET PO (20:44)
[2024-02-10] MEDS: hydrOXYzine HCL 25 MG TABLET PO (20:44)
[2024-02-10] MEDS: Melatonin 3 MG TABLET 6 MG PO (20:44)
[2024-02-10] MEDS: traZODone HCL 50 MG TABLET PO (20:45)
[2024-02-10] MEDS: Prazosin HCL 1 MG CAPSULE PO (20:45)
[2024-02-10] MEDS: Ibuprofen 600 MG TABLET PO (20:45)
[2024-02-11 07:49] VITALS: BP 129/61; PULSE 89; RESP 16; TEMP 36.5; O2SAT 97
[2024-02-11] MEDS: methADONE HCl 20 MG/2 ML ORAL.CONC 115 MG PO (08:09)
[2024-02-11] MEDS: Fluticasone/Vilanterol 100/25 BLST.W.DEV 1 PUFF INHALE (08:28)
[2024-02-11] MEDS: cloNIDine HCL 0.1 MG TABLET 0.05 MG PO ×2 (08:29→15:06)
[2024-02-11] MEDS: Sertraline HCL 50 MG TABLET PO (08:29)
[2024-02-11] MEDS: Ibuprofen 600 MG TABLET PO ×2 (08:31→20:02)
[2024-02-11] MEDS: Nicotine 14 MG PATCH.TD24 TRANSDERMA (08:32)
[2024-02-11] MEDS: Nystatin Oral Susp 500,000 UNIT/5 ML ORAL.SUSP 400000 UNIT PO ×4 (08:33→20:02)
[2024-02-11] MEDS: Loratadine 10 MG TABLET PO (08:33)
--- NOTE | 2024-02-11 09:31 | P.PNPSI_ITS ---
Subjective Subjective Date of Service: 02/11/24 Reason For Visit: Crisis Subjective Notes: Conditional Voluntary Interim History: Pt reports feeling good today .She is requesting to be dropped off at [facility] tomorrow to obtain a tent. She continues to decline going to a senior living, however states she plans on following up with outpatient providers. denies SI/HI/VH/AH. Medication Compliance: Yes Side effects from medications: No Attending Groups: Yes Review of Systems Constitutional: Reports as per HPI Eyes: Reports as per HPI Reports as per HPI Cardiovascular: Reports as per HPI Respiratory: Reports as per HPI Gastrointestinal: Reports as per HPI Musculoskeletal: Reports as per HPI Skin/Breast: Reports as per HPI Reports as per HPI Psychiatric: Reports as per HPI Endocrine: Reports as per HPI Hematologic/Lymphatic: Reports as per HPI Allergic/Immunologic: Reports as per HPI Mental Status Exam Mental Status Exam Narrative: Pt is alert and oriented; behavior is cooperative; dressed in casual attire; mood is described as good ; eye contact appropriate; Speech is normal rate, volume and not pressured; thought process is organized and goal directed; Thought content is on tx; denies SI/HI/VH/AH. Diagnostics Vital Signs (24Hr): Vital Signs - 24 hr 02/10/24 14:03 02/10/24 20:00 02/11/24 07:49 Temperature 98.5 F 97.7 F Pulse Rate 85 89 Respiratory Rate 16 16 Blood Pressure 121/74 129/74 129/61 Pulse Oximetry 93 97 Oxygen Delivery Method Room Air Room Air BMI result Body Mass Index 18.9 Labs 02/05/24 08:32 Medications Medications Current Medications Acetaminophen (Acetaminophen 325 Mg Tablet) 650 mg PO Q6H PRN PRN Reason: Headache/Pain Mild Scale (1-3) Last Admin: 02/07/24 21:14 Dose: 650 mg Al Hydroxide/Mg Hydroxide (Magnesium Hydrox/Alum Hydrox 30 Ml Oral.Susp) 30 ml PO Q6H PRN PRN Reason: Heartburn/Nausea Albuterol Sulfate (Albuterol Sulfate 90 Mcg 8 Gm Inhaler) 2 puff INHALE RQ4H PRN PRN Reason: sob Last Admin: 02/09/24 12:00 Dose: 2 puff Calcium Carbonate (Calcium Carbonate 750 Mg Tab.Chew) 750 mg PO Q4H PRN PRN Reason: Heartburn Clonidine HCl (Clonidine Hcl 0.1 Mg Tablet) 0.05 mg PO BID@0800,1500 [facility]; Protocol Last Admin: 02/11/24 08:29 Dose: 0.05 mg Fluticasone/Vilanterol (Fluticasone/Vilanterol 100/25 Blst.W.Dev) 1 puff INHALE RDAILY [facility] Last Admin: 02/11/24 08:28 Dose: 1 puff Guaifenesin/Codeine Phosphate (Guaifen/Codeine Sf 200/20/10ml 10 Ml Liquid) 10 ml PO Q6H PRN PRN Reason: Cough Last Admin: 02/10/24 20:43 Dose: 10 ml Hydroxyzine HCl (Hydroxyzine Hcl 25 Mg Tablet) 25 mg PO Q6H PRN PRN Reason: Anxiety Last Admin: 02/10/24 20:44 Dose: 25 mg Ibuprofen (Ibuprofen 600 Mg Tablet) 600 mg PO Q8H PRN PRN Reason: Pain, Moderate(Pain Scale 4-6) Last Admin: 02/11/24 08:31 Dose: 600 mg Lidocaine/Diphenhydr/Alum/Mg/Simeth (Mag&Al/Sim/Diphenhyd/Lidocaine 10 Ml Oral.Susp) 10 ml PO Q4H PRN; Protocol PRN Reason: Sore Throat Last Admin: 02/10/24 19:04 Dose: 10 ml Loratadine (Loratadine 10 Mg Tablet) 10 mg PO DAILY [facility] Last Admin: 02/11/24 08:33 Dose: 10 mg Magnesium Hydroxide (Milk Of Magnesia 30 Ml Oral.Susp) 30 ml PO DAILY PRN PRN Reason: Constipation Melatonin (Melatonin 3 Mg Tablet) 6 mg PO BEDTIME PRN PRN Reason: Insomnia Last Admin: 02/10/24 20:44 Dose: 6 mg Methadone HCl (Methadone Hcl 20 Mg/2 Ml Oral.Conc) 115 mg PO DAILY [facility] Last Admin: 02/11/24 08:09 Dose: 115 mg Nicotine (Nicotine 14 Mg Patch.Td24) 14 mg TRANSDERMA DAILY [facility] Last Admin: 02/11/24 08:32 Dose: 14 mg Nicotine Polacrilex (Nicotine Polacrilex 2 Mg Gum) 4 mg BUCCAL Q2H PRN PRN Reason: Nicotine Cravings Last Admin: 02/04/24 21:19 Dose: 4 mg Nystatin (Nystatin Oral Susp 500,000 Unit/5 Ml Oral.Susp) 400,[address]; Protocol Last Admin: 02/11/24 08:33 Dose: 400,000 unit Olanzapine (Olanzapine 5 Mg Tablet) 5 mg PO BID PRN PRN Reason: anxiety, agitation Last Admin: 02/10/24 20:44 Dose: 5 mg Ondansetron HCl (Ondansetron Odt 8 Mg Tab.Rapdis) 8 mg TRANSLINGU Q12H PRN PRN Reason: Nausea and Vomiting Prazosin HCl (Prazosin Hcl 1 Mg Capsule) [address]; Protocol Last Admin: 02/10/24 20:45 Dose: 1 mg Sertraline HCl (Sertraline Hcl 50 Mg Tablet) [address] Last Admin: 02/11/24 08:29 Dose: 50 mg Trazodone HCl (Trazodone Hcl 50 Mg Tablet) 50 mg PO BEDTIME MRX1 PRN PRN Reason: Insomnia Last Admin: 02/10/24 20:45 Dose: 50 mg Allergies Allergies Allergy/AdvReac Type Severity Reaction Status Date / Time No Known Allergies Allergy Unverified 02/01/24 17:35 Assessment & Plan Assessment & Plan (1) MDD (major depressive disorder), recurrent episode: Status: Acute Code(s): F33.9 - Major depressive disorder, recurrent, unspecified (2) PTSD (post-traumatic stress disorder): Status: Acute Code(s): F43.10 - Post-traumatic stress disorder, unspecified (3) Opioid use disorder, severe, on maintenance therapy: Status: Acute Code(s): F11.20 - Opioid dependence, uncomplicated (4) Cocaine use disorder: Status: Acute Code(s): F14.10 - Cocaine abuse, uncomplicated (5) Homeless: Status: Acute Code(s): Z59.00 - Homelessness unspecified Plan Patient is a 48-year-old female with history of MDD, PTSD, opiate use disorder and cocaine use disorder who was seen on the medical floor due to increased depression. Plan: CV 15 minute safety checks Continue medications from psychiatric consult Encourage groups Referral to outpatient psychiatric providers Discharge planning 02/05 still with respiratory symptoms, still anxious and depressed. 02/06 still dysphoric, continue same treatment 02/07:Keeping to self. reports feeling depressed and tired. pt stated, everything I've been through and my trauma make me feel this way . She reports nightmares; start: prazosin 1mg PO bedtime; risks/benefits reviewed. Increase Zoloft to 50mg PO daily. denies SI/HI/VH/AH. Pt c/o labored breathing; seen by respiratory. Pt reports feels better after updrafts. Nursing to monitor. 02/08: Active on unit, attending groups. less isolative. Pt feels anxiety has decreased however continues to report high depression. She reports suicidal ideation with plan to walk into traffic; pt reports feeling like a burden .denies HI/VH/AH. Patient reports she is trying to be out of my room more and go to groups . Pt reports breathing has improved; d/c duoneb. Nursing to monitor. 02/09: Active on unit, attending groups. Pt reports decreased anxiety; continues to feel depressed about my situation . She reports passive SI; pt stated, I would never hurt myself because of my kids . Per nursing, pt slept 7 hours last night. Patient reports she plans on obtaining a tent and returning to the [facility] when discharged. She plans on following up with outpatient providers. Continue current tx plan. 02/10: Pt reports feeling good today .She is requesting to be dropped off at [facility] tomorrow to obtain a tent. She continues to decline going to a senior living, however states she plans on following up with outpatient providers. denies SI/HI/VH/AH. Patient educated on: diagnosis, medication risk/benefits and therapeutic strategies Reason for continued inpatient stay Substantial Risk for: stable for discharge Time Spent With Patient Time: Total time managing care of this patient today _20___ minutes.
[2024-02-11 12:58] VITALS: BMI 52.5
[2024-02-11 15:04] VITALS: BP 109/63; PULSE 88; RESP 16
[2024-02-11] MEDS: Acetaminophen 325 MG TABLET 650 MG PO (15:09)
[2024-02-11 20:00] VITALS: BP 134/80; PULSE 87; RESP 16; TEMP 36.8; O2SAT 98
[2024-02-11] MEDS: traZODone HCL 50 MG TABLET PO (20:02)
[2024-02-11] MEDS: Prazosin HCL 1 MG CAPSULE PO (20:03)
[2024-02-11] MEDS: Melatonin 3 MG TABLET 6 MG PO (20:05)
[2024-02-12 07:28] VITALS: BP 134/63; PULSE 80; RESP 14; TEMP 36.6; O2SAT 96
[2024-02-12] MEDS: methADONE HCl 20 MG/2 ML ORAL.CONC 115 MG PO (08:00)
[2024-02-12] MEDS: Fluticasone/Vilanterol 100/25 BLST.W.DEV 1 PUFF INHALE (09:05)
[2024-02-12] MEDS: Nicotine 14 MG PATCH.TD24 TRANSDERMA (09:06)
[2024-02-12] MEDS: Loratadine 10 MG TABLET PO (09:06)
[2024-02-12] MEDS: Sertraline HCL 50 MG TABLET PO (09:06)
[2024-02-12] MEDS: cloNIDine HCL 0.1 MG TABLET 0.05 MG PO (09:06)
[2024-02-12] MEDS: Naloxone HCl Nasal TAKE HOME 4 MG SPRAY 8 MG NOSTRILALT (09:06)
[2024-02-12] MEDS: Nystatin Oral Susp 500,000 UNIT/5 ML ORAL.SUSP 400000 UNIT PO (09:07)
--- NOTE | 2024-02-12 09:32 | PM.PSYDC ---
DS: Providers Provider Date of Service: 02/12/24 Date of admission: 02/04/24 14:38 Date of discharge: 02/12/24 Primary care physician: Unknown Physician Admitting clinician: Zahida Ruiz Attending physician on admission: Hill Stephens Attending physician on discharge: Jeremy Osborne Discharging clinician: Zahida Ruiz DS: Diagnosis Discharge Diagnosis (1) MDD (major depressive disorder), recurrent episode: Status: Acute (2) PTSD (post-traumatic stress disorder): Status: Acute (3) Opioid use disorder, severe, on maintenance therapy: Status: Acute (4) Cocaine use disorder: Status: Acute (5) Homeless: Status: Acute DS: Medications Discharge Medications Home Medications: Home Medications ?Medication ?Instructions ?Recorded ?Confirmed methadone 10 mg/5 mL oral solution 115 mg PO DAILY 02/01/24 02/01/24 Previous Rx's ?Medication ?Instructions ?Recorded albuterol sulfate 90 mcg/actuation 2 puff inhalation RQ4H PRN sob 30 02/11/24 aerosol inhaler (Ventolin HFA) days #6.7 grams clonidine HCl 0.1 mg tablet 0.05 mg PO BID@0800,1500 30 days 02/11/24 #30 tabs melatonin 5 mg tablet 5 mg PO BEDTIME PRN sleep 30 days 02/11/24 #30 tabs nystatin 100,000 unit/mL oral 400,000 unit (4 mL) PO QID 2 days 02/11/24 suspension #32 mL prazosin 1 mg capsule 1 mg PO BEDTIME 30 days #30 caps 02/11/24 sertraline 50 mg tablet 50 mg PO DAILY 30 days #30 tabs 02/11/24 Mental Status Exam Mental Status Exam Narrative: Pt is alert and oriented; behavior is cooperative; dressed in casual attire; mood is described as good ; eye contact appropriate; Speech is normal rate, volume and not pressured; thought process is organized and goal directed; Thought content is on tx; denies SI/HI/VH/AH. DS: Summary Hospital Course Hospital Course: Patient is a 48-year-old female with history of MDD, PTSD, opiate use disorder and cocaine use disorder who was seen on the medical floor due to increased depression. Per crisis report, patient [place] [facility] due to not feeling well physically; patient was found to be hypoxic. Patient reports she has been chronically homeless for the past 3 years and has been living in the [facility] in [place]. She reports history of depression and has no current outpatient providers or medication. Patient reports she was temporarily living with her brother however, was asked to leave after an argument. denies SI/HI/VH/AH. Patient reports being hospitalized psychiatrically 20 years ago at [facility] in [place], [place]. Patient reports history of alcohol and substance use; she reports not using alcohol for the past 2 years after her girlfriend . hx of snorting heroin, last used 1 year ago. During admission assessment, patient presents alert and oriented x3. Calm and cooperative. Patient stated, I have had a long history of depression and I have not been medicated for 20 years. I'm having thoughts of suicide and feeling hopeless. I'm just trying to put one foot in front of the other. I got kicked out of my brother's house recently . Patient reports using crack 4-5 times a month and marijuana daily. She denies any other substance use at this time. She reports last used heroin 8 months ago. Patient reports she would like to start on some medications and get stabilized . Patient reports she does not want to go to a group home. Patient stated, I plan [facility] because being around people is too scary. I have a lot of trauma. I live alone in the [facility]; it's better than being around people . Patient reports suicidal ideation with no plan. Patient denies HI/VH/AH. Plan: CV 15 minute safety checks Continue medications from psychiatric consult Encourage groups Referral to outpatient psychiatric providers Discharge planning still with respiratory symptoms, still anxious and depressed. still dysphoric, continue same treatment Keeping to self. reports feeling depressed and tired. pt stated, everything I've been through and my trauma make me feel this way . She reports nightmares; start: prazosin 1mg PO bedtime; risks/benefits reviewed. Increase Zoloft to 50mg PO daily. denies SI/HI/VH/AH. Pt c/o labored breathing; seen by respiratory. Pt reports feels better after updrafts. Nursing to monitor. Active on unit, attending groups. less isolative. Pt feels anxiety has decreased however continues to report high depression. She reports suicidal ideation with plan to walk into traffic; pt reports feeling like a burden .denies HI/VH/AH. Patient reports she is trying to be out of my room more and go to groups . Pt reports breathing has improved; d/c duoneb. Nursing to monitor. Active on unit, attending groups. Pt reports decreased anxiety; continues to feel depressed about my situation . She reports passive SI; pt stated, I would never hurt myself because of my kids . Per nursing, pt slept 7 hours last night. Patient reports she plans on obtaining a tent and [facility]. She plans on following up with outpatient providers. Continue current tx plan. Pt reports feeling good today .She is requesting to be dropped off at [facility] tomorrow to obtain a tent. She continues to decline going to a group home, however states she plans on following up with outpatient providers. denies SI/HI/VH/AH. Patient reports she plans on following up with outpatient providers. Feels ready for discharge. Denies SI/HI/VH/AH. Time spent discussing smoking cessation with patient: 3 to 10 minutes Status at Discharge Cognitive/behavioral status at discharge: Patient was interviewed prior to discharge and found to be fully oriented and without SI or HI. Patient has insight and demonstrates good judgment in terms of wanting to pursue treatment. Patient has a safety plan that includes presenting to the closest ER or calling 911 if feeling unsafe. Functional status at discharge: independent ambulation Overall status at discharge: patient is back to baseline Time Spent with Patient Time attestation: Total time managing care of this patient today _20___ minutes. Time spent: Less than 30 minutes Discharge Plan Discharge Anticipated Discharge Date/Time: 02/12/24 11:30 Patient Disposition: Home, Self-Care Discharge Diagnosis: MDD, PTSD, opioid use d/o, cocaine use d/o Referrals: [facility] [Other] - 1 Week (walk in hours for this clinic are 10am-12pm. Bring your discharge paperwork with you.) [facility] [Other] - 1 Week (Walk in hours are 8am-8p Thursday-Thursday Bring your discharge paperwork with you. ) [facility] [Provider Group] - 1 Week ([facility] was added to patients chart. Please call [phone] to schedule your follow up appt.) Discharge Medications: New melatonin 5 mg tablet 5 mg PO BEDTIME PRN (Reason: sleep) 30 Days Qty: 30 0RF sertraline 50 mg Tablet 50 mg PO DAILY 30 Days Qty: 30 0RF albuterol sulfate [Ventolin HFA] 90 mcg/actuation Hfa Aerosol Inhaler 2 puff inhalation RQ4H PRN (Reason: sob) 30 Days Qty: 6.7 0RF nystatin 100,000 unit/mL Suspension 400,000 unit PO QID 2 Days Qty: 32 0RF prazosin 1 mg Capsule 1 mg PO BEDTIME 30 Days Qty: 30 0RF Protocol: Hold for SBP< HOLD for SBP < : 90 clonidine HCl 0.1 mg Tablet 0.05 mg PO BID@0800,1500 30 Days Qty: 30 0RF Protocol: Hold for SBP< HOLD for SBP < : 90 Continued methadone 10 mg/5 mL Solution 115 mg PO DAILY Discharge Orders: Discharge Order (Routine); Ordered 02/12/24 Ordered By: Zahida Ruiz Diet: Regular diet Activity on Discharge: As tolerated Stand Alone Forms: Patient Portal Discharge page, Community Support Print Language: Khmer Care Plan Goals: Maintain mood and safe behaviors Take medications as prescribed Continue to pursue sobriety Practice coping skills Continue with outpatient providers and reach out to them as needed Health Concerns: Mood stability and behaviors Sobriety Plan of Treatment: Follow up with your PCP, psychiatric provider and other outpatient providers regarding above concerns Take medications as prescribed Assessment: Patient was interviewed prior to discharge and found to be fully oriented and without SI or HI. Patient has insight and demonstrates good judgment in terms of wanting to pursue treatment. Patient has a safety plan that includes presenting to the closest ER or calling 911 if feeling unsafe.
== END 2024-02-12 12:06 | disposition home or self-care (01) | DRG 751 ==
PROVIDERS: Admitting Provider Registered Nurse; Responsible Provider Registered Nurse; Visit Provider Psychiatry & Neurology Psychiatry
DX: F33.9 Major depressive disorder, recurrent, unspecified (principal); F11.20 Opioid dependence, uncomplicated; F17.210 Nicotine dependence, cigarettes, uncomplicated; Z71.6 Tobacco abuse counseling; F43.10 Post-traumatic stress disorder, unspecified; F14.10 Cocaine abuse, uncomplicated; Z59.02 Unsheltered homelessness; Z79.899 Other long term (current) drug therapy
CPT/HCPCS: 36415; 80053; 80061; 94640

== ENCOUNTER → 2024-02-04 14:38 | Outpatient (BNV) | payer OTHER, SELFPAY | PROVIDERS: Admitting Provider Registered Nurse; Responsible Provider Registered Nurse; Visit Provider Psychiatry & Neurology Psychiatry | DX: F33.2 Major depressive disorder, recurrent severe without psychotic features (principal); F14.10 Cocaine abuse, uncomplicated; F11.20 Opioid dependence, uncomplicated; F43.11 Post-traumatic stress disorder, acute; Z59.00 Homelessness unspecified | CPT/HCPCS: 90792; 99231; 99232; 99238 ==